=== PATIENT | female | born 1945 | race Caucasian/White ===

== ENCOUNTER 2016-06-13 09:31 | Outpatient (CLI) | payer OTHER ==
[~2016-06-13] VITALS: Ht 162.6 cm; Wt 53.5 kg
[~2016-06-13 09:31] MED LIST: ASPI-482 PO; CARB200T PO; CLOP75TA PO; METO25TA9 PO; SIMV20TA PO
[2016-06-13] MEDS ORDERED: BACITRACIN 50,000 UNIT in IV NORMAL SALINE 250ML 250 ML IRR ONE (09:45)
[2016-06-13 09:53] VITALS: BP 124/66
[2016-06-13 09:58] LABS: HEMATOCRIT 48.4 % (36.0-47.0); HEMOGLOBIN 16.3 g/dL (12.0-15.5); RED BLOOD COUNT 4.96 x10^6/uL (3.50-5.40); RED CELL DISTRIBUTION WIDTH 14.4 % (11.5-14.5); WHITE BLOOD COUNT 7.1 x10^3/uL (4.0-11.0)
[2016-06-13 10:14] LABS: CALCIUM 9.1 mg/dL (8.5-10.1); CREATININE 0.8 mg/dL (0.6-1.0); GFR 71.3; POTASSIUM 4.5 mmol/L (3.5-5.1)
[2016-06-13] MEDS ORDERED: MIDAZOLAM HCL/PF 5 MG/5 ML VIAL ONE (11:12)
[2016-06-13] MEDS ORDERED: FENTANYL PF 250 MCG/5 ML VIAL. ONE (11:12)
[2016-06-13] MEDS ORDERED: LIDOCAINE 2%/EPI 1:100,000 20 ML VIAL. ONE (11:12)
--- NOTE | 2016-06-13 11:24 | PDOC ---
MODERATE SEDATION ASSESSMENT RISKS/ALTERNATIVES Risks/Alternatives Risks and alternatives of this type of sedation and procedure discussed with: RISK/ALTERNATIVES: Patient H & P ON CHART H & P H & P on chart and reviewed for co-morbid conditions and appropriate labs. H&P ON CHART: Yes STATUS PREG STATUS ASSESSED: Yes MEDS/ALLERGIES REVIEWED Meds/Allergies Reviewed Medications and Allergies including time and route of recently administered narcotics and sedatives. MEDS/ALLERGIES REVIEWED: Yes ASA RATING ASA RATING: II AIRWAY ASSESSMENT Airway Assessment Airway patency, oral function limitations, presence of caps, crowns, dentures, partials, and ability to extend neck assessed. AIRWAY ASSESSMENT: Yes MALLAMPATI SCORE MALLAMPATI SCORE: II PRE-SEDATION ASSESSMENT PRE-SEDATION ASSESSMENT: Yes KATHY SPENCER MD Jun 13, 2016 11:24
[2016-06-13] MEDS ORDERED: LIDOCAINE 2%/EPI 1:100,000 20 ML VIAL. IJ ONE (11:45)
[2016-06-13 12:15] VITALS: BP 155/76
[2016-06-13 12:30] VITALS: BP 155/76
[2016-06-13 12:45] VITALS: BP 145/74
[2016-06-13 13:00] VITALS: BP 123/84
[2016-06-13 13:15] VITALS: BP 123/84
--- NOTE | 2016-06-13 18:49 | CARD ---
APPROVED REPORT HISTORY The Patient is a 70 year-old female with a history of bradycardia that has a permanent dual chamber p acer The patient's pacemaker was checked and it has reached end-of-life indicators. PROCEDURES Dual-chamber permanent pacemaker generator replacement INDICATIONS Pacemaker generator at end of life indicators for the battery IMPLANTED DEVICES [employer] dual-chamber pacemaker generator PROCEDURE After explaining the risks, benefits, and alternative options, informed consent was obtained from the patient. The patient was brought to the cardiac catheterization lab and the left chest and shoulder were prepp ed and draped in a sterile manner. The left subclavian region was infiltrated with 2% Lidocaine with Epinephrine, subcutaneous anesthesi a. A transverse incision was made in the left upper chest cavity. After the subcutaneous anesthesia was given the skin incision was done and with blunt dissection I wo rked my way down to the pocket. The pocket was entered and the generator was extracted from the pocket. The atrial lead was disconnected and checked we found that the thresholds were normal. We then connected the atrial lead to the generator at the atrial port and verified that there was nor mal function and a normal connection. The ventricular lead was then disconnected from the old generator and connected to the new generator and connections as well as functions were then checked and found to be normal. The pocket was then irrigated with antibiotic solution. The new pacer generator which was a [employer] generator connected to the [employer] leads was then place d in the pocket. The pocket was closed with 3 layers of running sutures. The skin edges were approximated with Dermabond. After the Dermabond was dry a dressing was applied to the area. The patient was then taken to the recovery room in satisfactory condition. COMPLICATIONS The patient tolerated the procedure well and there were no complications associated with the procedur e. CONCLUSION This patient received a [employer] dual-chamber pacemaker generator replacement and she tolerated the p rocedure well. We will be followed as an outpatient in one week in my office.
[2016-06-14] MEDS ORDERED: CEFAZOLIN SODIUM 1 GM in IV NORMAL SALINE 50ML 50 ML IV ONE (06:00)
== END 2016-06-13 13:30 | disposition home or self-care (01) ==
LOC: CCL 09:31
PROVIDERS: ATTEND Internal Medicine Cardiovascular Disease
DX: Z45.010 Encounter for checking and testing of cardiac pacemaker pulse generator [battery] (principal); E78.00 Pure hypercholesterolemia, unspecified; I10 Essential (primary) hypertension; J44.9 Chronic obstructive pulmonary disease, unspecified; I48.91 Unspecified atrial fibrillation; I73.9 Peripheral vascular disease, unspecified
CPT/HCPCS: 33228; 36415; 80048; 85027; 85610; C1785; J0690; J3490; J7050; 33213; J7030

== ENCOUNTER 2016-10-18 10:12 | Inpatient (IN) | payer OTHER, MEDICARE ==
[~2016-10-18] VITALS: Ht 162.6 cm; Wt 55.3 kg
[2016-10-18] VITALS (12 sets, daily range): BP systolic 108–174; BP diastolic 47–75
[2016-10-18] MEDS ORDERED: ONDANSETRON PF 4 MG/2 ML VIAL. IV ONE (10:30)
[2016-10-18] MEDS ORDERED: IPRATRPIUM/ALBUTEROL 0.5/2.5MG 3 ML NEBU. NEB ONE (10:30)
[2016-10-18] MEDS ORDERED: ASPIRIN 325 MG TABLET PO ONE (10:30)
[2016-10-18] MEDS ORDERED: ALBUTEROL SULFATE 2.5 MG/3 ML NEBU. INH ONE (10:30)
[2016-10-18] MEDS ORDERED: methylPREDNISolone SOD SUCC PF 125 MG/2 ML VIAL. IV ONE (10:30)
--- NOTE | 2016-10-18 10:52 | ACF ---
Admission Forms Criteria RESPIRATORY FAILURE [facility] Clinical Indications for Admission to Inpatient Care (Place 'X' for any and all applicable criteria): Hospital admission is needed for appropriate care of the patient because of acute respiratory failure or insufficiency as indicated by ANY ONE of the following(1)(2)(3)(4)(5)(6)(7)(8): [X]I. Mechanical ventilation needed (acute invasive or noninvasive) [ ]II. Severe ventilation deficit as indicated by ANY ONE of the following (9) [ ]a) Respiratory acidosis (pH less than 7.32 and partial pressure of carbon dioxide greater than 40 mm Hg (5.3 kPa)) [ ]b) Partial pressure of carbon dioxide greater than 44 mm Hg (5.9 kPa ) (new) [ ]c) Airflow measurements less than 25% of predicted (eg, peak expiratory flow rate less than 100 L/minute) [ ]d) Forced vital capacity less than 15 mL/kg of ideal body weight, or 50% decrease in vital capacity from baseline [ ]III. Noncardiac pulmonary edema not resolving with rapid emergency treatment (8) [ ]IV. Severe respiratory distress as indicated by ANY ONE of the following: [ ]a) Severe tachypnea (respiratory rate greater than 30, greater than 45 for 6-month-old, greater than 60 for ) [ ]b) Severe hypoxemia (partial pressure of oxygen less than 50 mm Hg ( 6.7 kPa) on greater than 50% oxygen or partial pressure of oxygen to FIO2 ratio less than 200) [ ]c) Mental status deterioration from respiratory disease [ ]V. Airway obstruction or inadequate protection [A](10)(11) The original [employer] content created by [employer] has been revised. The portions of the content which have been revised are identified through the use of italic text or in bold, and [employer] has neither reviewed nor approved the modified material. All other unmodified content is copyright [employer]. Please see references footnoted in the original [employer] edition 2016 Admission Criteria Met?: Yes MARITZA DOMINIQUE Oct 18, 2016 10:52
--- NOTE | 2016-10-18 11:15 | RAD ---
Portable chest, 10/18/2016: History: Shortness of breath Comparison is made to a study from 10/25/2013. A left-sided transvenous pacemaker remains in place with 2 leads extending into the heart. The heart is within normal limits in size. There are emphysematous changes, particularly in the right upper lobe with scattered parenchymal scars. There is mild unchanged basilar interstitial prominence. There is a calcified granuloma in the left base. No acute infiltrate is seen. There is no evidence of pneumothorax or pleural fluid. IMPRESSION: 1. Emphysema with moderate parenchymal scarring. 2. No acute cardiopulmonary abnormality is detected.
[2016-10-18 11:34] LABS: HCO3 ABG 23 mmol/L (21-28); PCO2 ABG 44 mmHg (35-46); PH ABG 7.34 (7.35-7.45); PO2 ABG 76 mmHg (65-108); SAT O2 ABG 94 % (92-99)
--- NOTE | 2016-10-18 11:45 | EKG ---
[facility] [address] [place] [address] Test Date: 2016-10-18 Test Time: 10:58:32 Pat Name: RASHAUN POZO Department: Room: Gender: F Hat Block Bench Hand: : 1945 Requested By: MAXIMINO PETERSEN Order Number: [id number] Reading MD: Measurements Intervals [place] Rate: 90 P: 90 VA: 148 QRS: 37 QRSD: 82 T: 75 QT: 346 QTc: 427 Interpretive Statements SINUS RHYTHM LEFT ATRIAL ABNORMALITY QRS(T) CONTOUR ABNORMALITY CONSIDER ANTEROSEPTAL MYOCARDIAL DAMAGE T ABNORMALITY IN HIGH LATERAL LEADS RI6.01 Unconfirmed report No previous ECG available for comparison
[2016-10-18 11:49] LABS: BASO # 0.1 x10^3/uL (0.0-0.2); BASO % 1 % (0-3); EOS % 1 % (0-3); HEMATOCRIT 45.2 % (36.0-47.0); HEMOGLOBIN 14.9 g/dL (12.0-15.5); LYMPH # 1.5 x10^3/uL (1.0-4.8); LYMPH % 20 % (24-48); MEAN CORPUSCULAR HEMOGLOBIN 33 pg (25-35); MEAN CORPUSCULAR HGB CONC 33 g/dL (31-37); MEAN CORPUSCULAR VOLUME 100 fL (79-100); MONO % 6 % (0-9); NEUT % 72 % (31-73); PLATELET COUNT 190 x10^3/uL (140-400); RED CELL DISTRIBUTION WIDTH 14.4 % (11.5-14.5); WHITE BLOOD COUNT 7.9 x10^3/uL (4.0-11.0)
[2016-10-18 12:01] LABS: INR 1.1 (0.8-1.1); PROTHROMBIN TIME PATIENT 13.2 SEC (11.7-14.0)
[2016-10-18 12:04] LABS: CALCIUM 9.1 mg/dL (8.5-10.1); CREATININE 0.8 mg/dL (0.6-1.0); GFR 71.3; POTASSIUM 4.5 mmol/L (3.5-5.1)
[2016-10-18 12:10] LABS: ALBUMIN 3.6 g/dL (3.4-5.0); ALBUMIN/GLOBULIN RATIO 0.9 (1.0-1.7); TOTAL BILIRUBIN 0.2 mg/dL (0.2-1.0); TOTAL PROTEIN 7.6 g/dL (6.4-8.2)
[2016-10-18] MEDS ORDERED: ACETAMINOPHEN 325 MG TABLET. PO PRN (13:15)
[2016-10-18] MEDS ORDERED: MORPHINE SULFATE 2 MG/ML DISP.SYRIN. IV PRN (13:15)
[2016-10-18] MEDS ORDERED: ONDANSETRON PF 4 MG/2 ML VIAL. IV PRN (13:15)
--- NOTE | 2016-10-18 13:58 | PHYS DOC ---
Past Medical History Past Medical History: COPD, PR Past Surgical History: Pacemaker, Tonsillectomy, Other Additional Past Surgical Histo: CARTIOD Additional Information: 2 TO 3 PPD Alcohol Use: Occasionally Drug Use: None Adult General Chief Complaint Chief Complaint: SHORTNESS OF BREATH HPI HPI Patient is a 70 year old female who presents with respiratory distress. The patient reports 2 weeks of progressive dyspnea at rest significantly worse today. Reports wheezing and cough productive of pink/red sputum. Denies fevers or chills, chest pain, lower extremity pain or swelling. She has history of COPD not dependent on home oxygen, CAD status post cardiac stenting, status post carotid endarterectomy. Current every day smoker. PCP is Dr. Hylton. EMS placed her on CPAP due to O2 sats in the 80s at home with distress. Review of Systems Review of Systems Constitutional: Denies fever or chills Eyes: Denies change in visual acuity HENT: Denies nasal congestion or sore throat Respiratory: Reports cough and shortness of breath Cardiovascular: Denies chest pain or edema GI: Denies abdominal pain, nausea, vomiting, or diarrhea Musculoskeletal: Denies back pain or joint pain Integument: Denies rash or skin lesions Neurologic: Denies headache, focal weakness or sensory changes Allergies Allergies Allergies Coded Allergies Type Severity Reaction Last Updated Verified oxycodone Allergy Intermediate 10/25/13 No Physical Exam Physical Exam Constitutional: Well developed, well nourished, mild respiratory distress, non- toxic appearance. HENT: Normocephalic, atraumatic, bilateral external ears normal, oropharynx moist, nose normal. Eyes: conjunctiva normal, no discharge. Neck: supple, no stridor. Cardiovascular: Tachycardic, regular, no murmurs, no edema. Lungs & Thorax: Tight throughout, coarse with expiratory wheezing, no respiratory distress. Abdomen: soft, nontender, nondistended. Skin: Warm, dry, no erythema, no rash. Back: No tenderness. Extremities: No tenderness, no edema. No calf tenderness or swelling Neurologic: Alert and oriented X 3, no focal deficits noted. Psychologic: Affect normal, judgement normal, mood normal. Current Patient Data Vital Signs Vital Signs Date Time Temp Pulse Resp B/P (MAP) Pulse Ox O2 Delivery O2 Flow Rate FiO2 10/18/16 10:12 97.8 99 26 161/81 (107) 90 BiPAP/CPAP 97.8 EKG EKG Interpreted by me: Normal sinus rhythm rate 90, no acute ST or T wave changes, normal intervals, no ectopy. [] Radiology/Procedures Radiology/Procedures PROCEDURE: CHEST AP ONLY Portable chest, 10/18/2016: History: Shortness of breath Comparison is made to a study from 10/25/2013. A left-sided transvenous pacemaker remains in place with 2 leads extending into the heart. The heart is within normal limits in size. There are emphysematous changes, particularly in the right upper lobe with scattered parenchymal scars. There is mild unchanged basilar interstitial prominence. There is a calcified granuloma in the left base. No acute infiltrate is seen. There is no evidence of pneumothorax or pleural fluid. IMPRESSION: 1. Emphysema with moderate parenchymal scarring. 2. No acute cardiopulmonary abnormality is detected. DICTATED and SIGNED BY: MIKAL TOVAR MD DATE: 10/18/16 1110[] Course & Med Decision Making Course & Med Decision Making Pertinent Labs and Imaging studies reviewed. (See chart for details) The patient presents with acute respiratory failure on CPAP. Transferred to BiPAP here. Gave in-line breathing treatments and Solu-Medrol as well as aspirin. Obtained labs, EKG, chest x-ray. Chest x-ray shows no infiltrate. Labs are pending at time of admission as they had to be redrawn. I discussed with Dr. Auguste who agrees to consult, discussed with Dr. Hylton who agrees to admit to inpatient status. The patient is admitted in stable condition. Critical care time: 35 minutes [] Dragon Disclaimer Dragon Disclaimer This electronic medical record was generated, in whole or in part, using a voice recognition dictation system. Departure Departure Impression: Primary Impression: Acute respiratory failure Additional Impressions: COPD with acute exacerbation Hypoxia Tobacco abuse Disposition: ADMITTED INPATIENT Admitting Physician: Norberto Hylton Condition: STABLE Referrals: NORBERTO HYLTON MD (PCP) Problem Qualifiers MAXIMINO PETERSEN MD Oct 18, 2016 13:58
[2016-10-18] MEDS: IPRATRPIUM/ALBUTEROL 0.5/2.5MG 3 ML NEBU. NEB SCH ×2 (14:19→19:41)
[2016-10-18] MEDS ORDERED: carBAMazepine 200 MG TABLET PO SCH ×2 (15:15→21:00)
[2016-10-18] MEDS: CARBAMAZEPINE 100 MG PO SCH ×2 (16:15→20:53)
[2016-10-18] MEDS ORDERED: diphenhydrAMINE HCL 25 MG CAPSULE PO PRN (19:30)
--- NOTE | 2016-10-18 19:31 | PDOC ---
PULMONARY PROGRESS NOTES Vitals Vital Signs Date Time Temp Pulse Resp B/P (MAP) Pulse Ox O2 Delivery O2 Flow Rate FiO2 10/18/16 16:00 97.8 89 20 127/75 (92) 94 Nasal Cannula 3.0 97.8 Labs Laboratory Tests Test 10/18/16 11:40 White Blood Count 7.9 x10^3/uL (4.0-11.0) Red Blood Count 4.50 x10^6/uL (3.50-5.40) Hemoglobin 14.9 g/dL (12.0-15.5) Hematocrit 45.2 % (36.0-47.0) Mean Corpuscular Volume 100 fL (79-100) Mean Corpuscular Hemoglobin 33 pg (25-35) Mean Corpuscular Hemoglobin Concent 33 g/dL (31-37) Red Cell Distribution Width 14.4 % (11.5-14.5) Platelet Count 190 x10^3/uL (140-400) Neutrophils (%) (Auto) 72 % (31-73) Lymphocytes (%) (Auto) 20 % (24-48) Monocytes (%) (Auto) 6 % (0-9) Eosinophils (%) (Auto) 1 % (0-3) Basophils (%) (Auto) 1 % (0-3) Neutrophils # (Auto) 5.7 x10^3uL (1.8-7.7) Lymphocytes # (Auto) 1.5 x10^3/uL (1.0-4.8) Monocytes # (Auto) 0.5 x10^3/uL (0.0-1.1) Eosinophils # (Auto) 0.1 x10^3/uL (0.0-0.7) Basophils # (Auto) 0.1 x10^3/uL (0.0-0.2) Prothrombin Time 13.2 SEC (11.7-14.0) Prothromb Time International Ratio 1.1 (0.8-1.1) Activated Partial Thromboplast Time 27 SEC (24-38) O2 Saturation 94 % (92-99) Arterial Blood pH 7.34 (7.35-7.45) Arterial Blood pCO2 at Patient Temp 44 mmHg (35-46) Arterial Blood pO2 at Patient Temp 76 mmHg (65-108) Arterial Blood HCO3 23 mmol/L (21-28) Arterial Blood Base Excess -3 mmol/L (-3-3) FiO2 40.0 Sodium Level 141 mmol/L (136-145) Potassium Level 4.5 mmol/L (3.5-5.1) Chloride Level 104 mmol/L (98-107) Carbon Dioxide Level 29 mmol/L (21-32) Anion Gap 8 (6-14) Blood Urea Nitrogen 24 mg/dL (7-20) Creatinine 0.8 mg/dL (0.6-1.0) Estimated GFR (Cockcroft-Gault) 71.3 BUN/Creatinine Ratio 30 (6-20) Glucose Level 133 mg/dL (70-99) Calcium Level 9.1 mg/dL (8.5-10.1) Total Bilirubin 0.2 mg/dL (0.2-1.0) Aspartate Amino Transf (AST/SGOT) 22 U/L (15-37) Alanine Aminotransferase (ALT/SGPT) 24 U/L (14-59) Alkaline Phosphatase 103 U/L (46-116) Troponin I Quantitative < 0.017 ng/mL (0.000-0.055) EH-Gtg-Y-Type Natriuretic Peptide 432 pg/mL (0-124) Total Protein 7.6 g/dL (6.4-8.2) Albumin 3.6 g/dL (3.4-5.0) Albumin/Globulin Ratio 0.9 (1.0-1.7) Laboratory Tests Test 10/18/16 11:40 White Blood Count 7.9 x10^3/uL (4.0-11.0) Red Blood Count 4.50 x10^6/uL (3.50-5.40) Hemoglobin 14.9 g/dL (12.0-15.5) Hematocrit 45.2 % (36.0-47.0) Mean Corpuscular Volume 100 fL (79-100) Mean Corpuscular Hemoglobin 33 pg (25-35) Mean Corpuscular Hemoglobin Concent 33 g/dL (31-37) Red Cell Distribution Width 14.4 % (11.5-14.5) Platelet Count 190 x10^3/uL (140-400) Neutrophils (%) (Auto) 72 % (31-73) Lymphocytes (%) (Auto) 20 % (24-48) Monocytes (%) (Auto) 6 % (0-9) Eosinophils (%) (Auto) 1 % (0-3) Basophils (%) (Auto) 1 % (0-3) Neutrophils # (Auto) 5.7 x10^3uL (1.8-7.7) Lymphocytes # (Auto) 1.5 x10^3/uL (1.0-4.8) Monocytes # (Auto) 0.5 x10^3/uL (0.0-1.1) Eosinophils # (Auto) 0.1 x10^3/uL (0.0-0.7) Basophils # (Auto) 0.1 x10^3/uL (0.0-0.2) Prothrombin Time 13.2 SEC (11.7-14.0) Prothromb Time International Ratio 1.1 (0.8-1.1) Activated Partial Thromboplast Time 27 SEC (24-38) O2 Saturation 94 % (92-99) Arterial Blood pH 7.34 (7.35-7.45) Arterial Blood pCO2 at Patient Temp 44 mmHg (35-46) Arterial Blood pO2 at Patient Temp 76 mmHg (65-108) Arterial Blood HCO3 23 mmol/L (21-28) Arterial Blood Base Excess -3 mmol/L (-3-3) FiO2 40.0 Sodium Level 141 mmol/L (136-145) Potassium Level 4.5 mmol/L (3.5-5.1) Chloride Level 104 mmol/L (98-107) Carbon Dioxide Level 29 mmol/L (21-32) Anion Gap 8 (6-14) Blood Urea Nitrogen 24 mg/dL (7-20) Creatinine 0.8 mg/dL (0.6-1.0) Estimated GFR (Cockcroft-Gault) 71.3 BUN/Creatinine Ratio 30 (6-20) Glucose Level 133 mg/dL (70-99) Calcium Level 9.1 mg/dL (8.5-10.1) Total Bilirubin 0.2 mg/dL (0.2-1.0) Aspartate Amino Transf (AST/SGOT) 22 U/L (15-37) Alanine Aminotransferase (ALT/SGPT) 24 U/L (14-59) Alkaline Phosphatase 103 U/L (46-116) Troponin I Quantitative < 0.017 ng/mL (0.000-0.055) TW-Miz-Q-Type Natriuretic Peptide 432 pg/mL (0-124) Total Protein 7.6 g/dL (6.4-8.2) Albumin 3.6 g/dL (3.4-5.0) Albumin/Globulin Ratio 0.9 (1.0-1.7) Medications Active Scripts Medications Dose Route/Sig Max Daily Dose Days Date Category Clopidogrel (Clopidogrel Bisulfate) 75 Mg Tablet 75 Mg PO DAILY 10/25/13 Reported Metoprolol Succinate ( Xl ) (Metoprolol Succinate) 25 Mg Tab.er.24h 12.5 Mg PO DAILY 10/25/13 Reported Zocor (Simvastatin) 20 Mg Tablet 20 Mg PO HS 10/25/13 Reported Tegretol (Carbamazepine) 200 Mg Tablet 100 Mg PO TID 10/25/13 Reported Aspir 81 (Aspirin) 81 Mg Tablet.dr 81 Mg PO DAILY 10/25/13 Reported Impression . FULL CONSULT DICTATED THANKS ACUTE RESP FAILURE HEMOPTYSIS AECOPD SEE ORDERS JARON GRULLON MD Oct 18, 2016 19:31
[2016-10-18] MEDS: BENZONATATE 100 MG CAPSULE. PO SCH (20:52)
[2016-10-18] MEDS: methylPREDNISolone SOD SUCC PF 125 MG/2 ML VIAL. IV SCH (20:52)
[2016-10-18] MEDS ORDERED: SIMVASTATIN 20 MG TABLET PO SCH (21:00)
[2016-10-19] VITALS (10 sets, daily range): BP systolic 133–162; BP diastolic 58–83
[2016-10-19 05:40] LABS: BASO % 0 % (0-3); EOS % 0 % (0-3); HEMATOCRIT 40.3 % (36.0-47.0); HEMOGLOBIN 13.6 g/dL (12.0-15.5); LYMPH # 0.8 x10^3/uL (1.0-4.8); LYMPH % 8 % (24-48); MEAN CORPUSCULAR HEMOGLOBIN 33 pg (25-35); MEAN CORPUSCULAR HGB CONC 34 g/dL (31-37); MEAN CORPUSCULAR VOLUME 98 fL (79-100); MONO % 3 % (0-9); NEUT % 89 % (31-73); PLATELET COUNT 177 x10^3/uL (140-400); RED CELL DISTRIBUTION WIDTH 14.2 % (11.5-14.5); WHITE BLOOD COUNT 10.1 x10^3/uL (4.0-11.0)
[2016-10-19 06:01] LABS: CALCIUM 9.1 mg/dL (8.5-10.1); CREATININE 0.8 mg/dL (0.6-1.0); GFR 71.3; POTASSIUM 4.8 mmol/L (3.5-5.1)
--- NOTE | 2016-10-19 07:07 | CONS ---
DATE OF CONSULTATION: 10/18/2016 ATTENDING PHYSICIAN: Dr. Ashwin Hylton. REASON FOR CONSULTATION: The patient is seen in pulmonary consultation at the request of Dr. Hylton for acute respiratory failure, hemoptysis. HISTORY OF PRESENT ILLNESS: The patient is a 70-year-old that smokes on a daily basis approximately 2-3 packs per day. She presented with increasing shortness of breath over the last 2-3 days. Apparently, her air condition was nonfunctional for a short period of time; her sprayed for some bugs. She became acutely short of breath, presented to the Emergency Room with some respiratory distress, initially placed on BiPAP and transferred to the Intensive Care Unit. Her arterial blood gas revealed a pH of 7.34, PaCO2 of 44, pO2 of 76 on 40% FIO2. White count was normal. The hemoglobin and hematocrit were normal. The patient had a chest x-ray, which I personally reviewed. There is evidence of emphysema with some scarring. Over the last 24 hours, she has had acute onset of hemoptysis, bright red blood; in fact, while I was in the room, she had a container that contained some blood. There was not much mucus. The patient states that this occurred approximately a year ago, at one point when she had an acute episode of bronchitis, the hemoptysis was treated with some prednisone. She improved and never sought any additional treatment or followup or evaluation. PAST MEDICAL HISTORY: Coronary artery disease with previous myocardial infarction. She is status post pacemaker implantation. She has had tonsillectomy. PAST SURGICAL HISTORY: As above. ALLERGIES: TO OXYCODONE. HOME MEDICATIONS: List was reviewed. She is not currently on oxygen supplementation at home; apparently, she did not qualify. REVIEW OF SYSTEMS: As indicated above, otherwise a 10-point system was reviewed and negative. CURRENT MEDICATIONS: List was likewise reviewed. FAMILY HISTORY: No family history of lung cancer. SOCIAL HISTORY: She continues to smoke 2-3 packs of cigarettes, has no interest in quitting. Occasional use of alcohol. No illicit drugs. PHYSICAL EXAMINATION: VITAL SIGNS: The patient was off BiPAP in the Intensive Care Unit. Since her admission, her respiratory status is greatly improved. HEENT: Eyes, the sclerae were nonicteric. NECK: Jugular venous distention was not elevated. No lymphadenopathy. CHEST: Full expansion. LUNGS: Poor airway flow with no wheezes. CARDIOVASCULAR: Regular rate and rhythm with S1, S2, no S3. ABDOMEN: Soft, nontender, nondistended. EXTREMITIES: No clubbing, cyanosis or edema. NEUROLOGIC: The patient was awake, alert, following commands. A detailed neuro exam was not performed. LABORATORY DATA: Reviewed. Arterial blood gas as indicated above. White count was normal. IMPRESSION: 1. Acute respiratory failure secondary to acute exacerbation of chronic obstructive pulmonary disease. 2. Acute hemoptysis secondary to acute bronchitis. 3. Abnormal x-ray revealing evidence of emphysema and some scarring. 4. Tobacco dependence. 5. Coronary artery disease with previous myocardial infarction. 6. Status post pacemaker implantation. PLAN: 1. We will proceed with CT chest. 2. Monitor for further hemoptysis. 3. Possible bronchoscopy in the future. 4. Nebulized treatments. 5. Steroids. 6. No need for antibiotics. 7. The patient instructed on the importance of discontinuing her tobacco use. Once again, she is not interested in quitting at this time. 8. Of note is the patient is both on aspirin and Plavix. If her hemoptysis continues, would recommend possibly holding the aspirin. I do appreciate the privilege in sharing this patient's care. JARON GRULLON MD DR: ERICA/sumi JOB#: [id number] / [id number]
[2016-10-19] MEDS ORDERED: ASPIRIN ENTERIC COATED 81 MG TABLET.DR. PO SCH (08:00)
[2016-10-19] MEDS ORDERED: CLOPIDOGREL BISULFATE 75 MG TABLET PO SCH (08:00)
--- NOTE | 2016-10-19 08:07 | RAD ---
CT of the chest without contrast, 10/18/2016: History: Hemoptysis, shortness of breath Noncontrast scans were obtained as requested. There are extensive emphysematous changes in the lungs. There are moderate scattered predominantly linear opacities in both lungs most compatible with scars. There is a calcified granuloma in the left base. A small irregular, partially solid peripheral parenchymal opacity is seen inferolaterally in the right upper lobe abutting the minor fissure. It measures approximately 9 x 6 mm as best seen on coronal image 26 of series #4. There are mild streaky and groundglass opacities in the right lung base. This is a nonspecific appearance which may be due to additional scarring although active inflammation cannot be excluded. Pleural thickening medially in the right middle lobe is probably due to scarring. No pleural fluid is evident. Transvenous pacing leads extend into the heart. There is moderate calcific plaquing of the thoracic aorta without evidence of aneurysm. Moderate coronary artery calcifications are present. The heart is not enlarged. No mediastinal adenopathy is seen. There are left hilar calcifications due to old granulomatous disease. IMPRESSION: 1. Severe pulmonary emphysema. 2. Moderate bilateral pleural-parenchymal opacities probably due to scarring. A component of active inflammation in the right lung base cannot be excluded. 3. Small peripheral right upper lobe opacity which is probably a scar, although a neoplastic etiology cannot be excluded. CT follow-up beginning in 3-6 months is suggested, per Fleischner Society 2017 guidelines. 4. Moderate calcific plaquing of the aorta and coronary arteries. PQRS Compliance Statement: One or more of the following individualized dose reduction techniques were utilized for this examination: 1. Automated exposure control 2. Adjustment of the mA and/or kV according to patient size 3. Use of iterative reconstruction technique
--- NOTE | 2016-10-19 08:42 | PDOC ---
PULMONARY PROGRESS NOTES Subjective PT WISHES OT GO HOME FEELS BETTER LESS COUGH NO FURTHER HEMOPTYSIS Vitals Vital Signs Date Time Temp Pulse Resp B/P (MAP) Pulse Ox O2 Delivery O2 Flow Rate FiO2 10/19/16 07:00 82 17 153/61 (91) 93 Nasal Cannula 4.0 10/19/16 04:00 97.6 97.6 ROS: No Nausea, No Chest Pain, No Abdominal Pain, No Increase Cough Lungs: Clear Cardiovascular: S1, S2 Abdomen: Soft Neuro Exam: Alert Extremities: No Edema Skin: Warm Labs Laboratory Tests Test 10/18/16 11:40 10/18/16 13:00 10/19/16 04:30 10/19/16 05:00 White Blood Count 7.9 x10^3/uL (4.0-11.0) 10.1 x10^3/uL (4.0-11.0) Red Blood Count 4.50 x10^6/uL (3.50-5.40) 4.10 x10^6/uL (3.50-5.40) Hemoglobin 14.9 g/dL (12.0-15.5) 13.6 g/dL (12.0-15.5) Hematocrit 45.2 % (36.0-47.0) 40.3 % (36.0-47.0) Mean Corpuscular Volume 100 fL (79-100) 98 fL (79-100) Mean Corpuscular Hemoglobin 33 pg (25-35) 33 pg (25-35) Mean Corpuscular Hemoglobin Concent 33 g/dL (31-37) 34 g/dL (31-37) Red Cell Distribution Width 14.4 % (11.5-14.5) 14.2 % (11.5-14.5) Platelet Count 190 x10^3/uL (140-400) 177 x10^3/uL (140-400) Neutrophils (%) (Auto) 72 % (31-73) 89 % (31-73) Lymphocytes (%) (Auto) 20 % (24-48) 8 % (24-48) Monocytes (%) (Auto) 6 % (0-9) 3 % (0-9) Eosinophils (%) (Auto) 1 % (0-3) 0 % (0-3) Basophils (%) (Auto) 1 % (0-3) 0 % (0-3) Neutrophils # (Auto) 5.7 x10^3uL (1.8-7.7) 9.0 x10^3uL (1.8-7.7) Lymphocytes # (Auto) 1.5 x10^3/uL (1.0-4.8) 0.8 x10^3/uL (1.0-4.8) Monocytes # (Auto) 0.5 x10^3/uL (0.0-1.1) 0.3 x10^3/uL (0.0-1.1) Eosinophils # (Auto) 0.1 x10^3/uL (0.0-0.7) 0.0 x10^3/uL (0.0-0.7) Basophils # (Auto) 0.1 x10^3/uL (0.0-0.2) 0.0 x10^3/uL (0.0-0.2) Prothrombin Time 13.2 SEC (11.7-14.0) Prothromb Time International Ratio 1.1 (0.8-1.1) Activated Partial Thromboplast Time 27 SEC (24-38) O2 Saturation 94 % (92-99) Arterial Blood pH 7.34 (7.35-7.45) Arterial Blood pCO2 at Patient Temp 44 mmHg (35-46) Arterial Blood pO2 at Patient Temp 76 mmHg (65-108) Arterial Blood HCO3 23 mmol/L (21-28) Arterial Blood Base Excess -3 mmol/L (-3-3) FiO2 40.0 Sodium Level 141 mmol/L (136-145) 141 mmol/L (136-145) Potassium Level 4.5 mmol/L (3.5-5.1) 4.8 mmol/L (3.5-5.1) Chloride Level 104 mmol/L (98-107) 106 mmol/L (98-107) Carbon Dioxide Level 29 mmol/L (21-32) 29 mmol/L (21-32) Anion Gap 8 (6-14) 6 (6-14) Blood Urea Nitrogen 24 mg/dL (7-20) 21 mg/dL (7-20) Creatinine 0.8 mg/dL (0.6-1.0) 0.8 mg/dL (0.6-1.0) Estimated GFR (Cockcroft-Gault) 71.3 71.3 BUN/Creatinine Ratio 30 (6-20) Glucose Level 133 mg/dL (70-99) 133 mg/dL (70-99) Calcium Level 9.1 mg/dL (8.5-10.1) 9.1 mg/dL (8.5-10.1) Total Bilirubin 0.2 mg/dL (0.2-1.0) Aspartate Amino Transf (AST/SGOT) 22 U/L (15-37) Alanine Aminotransferase (ALT/SGPT) 24 U/L (14-59) Alkaline Phosphatase 103 U/L (46-116) Troponin I Quantitative < 0.017 ng/mL (0.000-0.055) ZS-Nzi-E-Type Natriuretic Peptide 432 pg/mL (0-124) Total Protein 7.6 g/dL (6.4-8.2) Albumin 3.6 g/dL (3.4-5.0) Albumin/Globulin Ratio 0.9 (1.0-1.7) Nasal Screen MRSA (PCR) Negative (Negative) Laboratory Tests Test 10/18/16 11:40 10/18/16 13:00 10/19/16 04:30 10/19/16 05:00 White Blood Count 7.9 x10^3/uL (4.0-11.0) 10.1 x10^3/uL (4.0-11.0) Red Blood Count 4.50 x10^6/uL (3.50-5.40) 4.10 x10^6/uL (3.50-5.40) Hemoglobin 14.9 g/dL (12.0-15.5) 13.6 g/dL (12.0-15.5) Hematocrit 45.2 % (36.0-47.0) 40.3 % (36.0-47.0) Mean Corpuscular Volume 100 fL (79-100) 98 fL (79-100) Mean Corpuscular Hemoglobin 33 pg (25-35) 33 pg (25-35) Mean Corpuscular Hemoglobin Concent 33 g/dL (31-37) 34 g/dL (31-37) Red Cell Distribution Width 14.4 % (11.5-14.5) 14.2 % (11.5-14.5) Platelet Count 190 x10^3/uL (140-400) 177 x10^3/uL (140-400) Neutrophils (%) (Auto) 72 % (31-73) 89 % (31-73) Lymphocytes (%) (Auto) 20 % (24-48) 8 % (24-48) Monocytes (%) (Auto) 6 % (0-9) 3 % (0-9) Eosinophils (%) (Auto) 1 % (0-3) 0 % (0-3) Basophils (%) (Auto) 1 % (0-3) 0 % (0-3) Neutrophils # (Auto) 5.7 x10^3uL (1.8-7.7) 9.0 x10^3uL (1.8-7.7) Lymphocytes # (Auto) 1.5 x10^3/uL (1.0-4.8) 0.8 x10^3/uL (1.0-4.8) Monocytes # (Auto) 0.5 x10^3/uL (0.0-1.1) 0.3 x10^3/uL (0.0-1.1) Eosinophils # (Auto) 0.1 x10^3/uL (0.0-0.7) 0.0 x10^3/uL (0.0-0.7) Basophils # (Auto) 0.1 x10^3/uL (0.0-0.2) 0.0 x10^3/uL (0.0-0.2) Prothrombin Time 13.2 SEC (11.7-14.0) Prothromb Time International Ratio 1.1 (0.8-1.1) Activated Partial Thromboplast Time 27 SEC (24-38) O2 Saturation 94 % (92-99) Arterial Blood pH 7.34 (7.35-7.45) Arterial Blood pCO2 at Patient Temp 44 mmHg (35-46) Arterial Blood pO2 at Patient Temp 76 mmHg (65-108) Arterial Blood HCO3 23 mmol/L (21-28) Arterial Blood Base Excess -3 mmol/L (-3-3) FiO2 40.0 Sodium Level 141 mmol/L (136-145) 141 mmol/L (136-145) Potassium Level 4.5 mmol/L (3.5-5.1) 4.8 mmol/L (3.5-5.1) Chloride Level 104 mmol/L (98-107) 106 mmol/L (98-107) Carbon Dioxide Level 29 mmol/L (21-32) 29 mmol/L (21-32) Anion Gap 8 (6-14) 6 (6-14) Blood Urea Nitrogen 24 mg/dL (7-20) 21 mg/dL (7-20) Creatinine 0.8 mg/dL (0.6-1.0) 0.8 mg/dL (0.6-1.0) Estimated GFR (Cockcroft-Gault) 71.3 71.3 BUN/Creatinine Ratio 30 (6-20) Glucose Level 133 mg/dL (70-99) 133 mg/dL (70-99) Calcium Level 9.1 mg/dL (8.5-10.1) 9.1 mg/dL (8.5-10.1) Total Bilirubin 0.2 mg/dL (0.2-1.0) Aspartate Amino Transf (AST/SGOT) 22 U/L (15-37) Alanine Aminotransferase (ALT/SGPT) 24 U/L (14-59) Alkaline Phosphatase 103 U/L (46-116) Troponin I Quantitative < 0.017 ng/mL (0.000-0.055) TJ-Oua-K-Type Natriuretic Peptide 432 pg/mL (0-124) Total Protein 7.6 g/dL (6.4-8.2) Albumin 3.6 g/dL (3.4-5.0) Albumin/Globulin Ratio 0.9 (1.0-1.7) Nasal Screen MRSA (PCR) Negative (Negative) Medications Active Scripts Medications Dose Route/Sig Max Daily Dose Days Date Category Clopidogrel (Clopidogrel Bisulfate) 75 Mg Tablet 75 Mg PO DAILY 10/25/13 Reported Metoprolol Succinate ( Xl ) (Metoprolol Succinate) 25 Mg Tab.er.24h 12.5 Mg PO DAILY 10/25/13 Reported Zocor (Simvastatin) 20 Mg Tablet 20 Mg PO HS 10/25/13 Reported Tegretol (Carbamazepine) 200 Mg Tablet 100 Mg PO TID 10/25/13 Reported Aspir 81 (Aspirin) 81 Mg Tablet.dr 81 Mg PO DAILY 10/25/13 Reported Impression . 1. Acute respiratory failure secondary to acute exacerbation of chronic obstructive pulmonary disease. 2. Acute hemoptysis secondary to acute bronchitis. 3. Abnormal x-ray revealing evidence of emphysema and some scarring. 4. Tobacco dependence. 5. Coronary artery disease with previous myocardial infarction. 6. Status post pacemaker implantation. Plan . PT WISHES TO BE D/C REVIEWED THE CT NO OBVIOUS MASS NEEDS FOLLOW UP CT IN 3 MONTHS PT INSTRUCTED TO CALL ME JIN IF HEMOPTYSIS RECURS , AT BEDSIDE STEROIDS TAPER RX WRITTEN PT INFORMED THAT SHE NEEDS TO D/C SMOKING A COPY OF CT REPORT WAS PROVIDED TO PT 6 MIN WALK SHE REQUIRES O2 WITH EXERTION JARON GRULLON MD Oct 19, 2016 08:42
[2016-10-19] MEDS: IPRATRPIUM/ALBUTEROL 0.5/2.5MG 3 ML NEBU. NEB SCH ×3 (08:43→14:48)
[2016-10-19] MEDS: methylPREDNISolone SOD SUCC PF 125 MG/2 ML VIAL. IV SCH (08:49)
[2016-10-19] MEDS: CARBAMAZEPINE 100 MG PO SCH ×2 (08:49→14:49)
[2016-10-19] MEDS: BENZONATATE 100 MG CAPSULE. PO SCH ×2 (08:49→14:48)
--- NOTE | 2016-10-19 08:49 | PDOC ---
GENERAL General: vss and afebrile. O2 at 4L/NC. awake and alert and feels she is at her baseline. some hemoptysis and ct chest reviewed and no obvious source. chest with decreased breath sounds but clear. heart regular. may go to floor. dc plans per pulmonary as patient pushing for dc today. Problems: VITAL SIGNS Vital Signs: Vital Signs Date Time Temp Pulse Resp B/P (MAP) Pulse Ox O2 Delivery O2 Flow Rate FiO2 10/19/16 08:44 91 Nasal Cannula 4.0 10/19/16 07:00 82 17 153/61 (91) 10/19/16 04:00 97.6 97.6 I & O I & O Intake and Output 10/19/16 07:00 Intake Total 820 ml Output Total 1600 ml Balance -780 ml Intake Oral 820 ml Output Urine Total 1600 ml ALLERGIES Allergies: Allergies Coded Allergies Type Severity Reaction Last Updated Verified oxycodone Allergy Intermediate 10/25/13 No MEDS Medications: Current Medications Medications (Trade) Dose Ordered Sig/Moncho Start Time Stop Time Status Last Admin Dose Admin Acetaminophen (Tylenol) 650 mg PRN Q4HRS PRN 10/18/16 13:15 10/19/16 13:14 Albuterol Sulfate (Ventolin Neb Soln) 5 mg 1X ONCE 10/18/16 10:30 10/18/16 10:31 DC 10/18/16 10:36 5 MG Albuterol/ Ipratropium (Duoneb) 3 ml RTQID 10/18/16 16:00 10/19/16 15:59 10/19/16 08:43 3 ML Aspirin (Shaila Aspirin) 325 mg 1X ONCE 10/18/16 10:30 10/18/16 10:31 DC 10/18/16 10:36 325 MG Aspirin (Ecotrin) 81 mg DAILYWBKFT 10/19/16 08:00 10/19/16 08:00 DC Benzonatate (Tessalon Perle) 100 mg [id number] 10/18/16 21:00 10/18/16 20:52 100 MG Carbamazepine (TEGretol) 200 mg TID 10/18/16 21:00 UNV Clopidogrel Bisulfate (Plavix) 75 mg DAILYWBKFT 10/19/16 08:00 Diphenhydramine HCl (Benadryl) 25 mg PRN QHS PRN 10/18/16 19:30 Lorazepam (Ativan) 1 mg 1X ONCE 10/18/16 10:45 10/18/16 10:46 DC 10/18/16 11:06 0.5 MG Methylprednisolone Sodium Succinate (SOLU-Medrol 125MG VIAL) 125 mg BID 10/18/16 21:00 10/18/16 20:52 125 MG Metoprolol Succinate (Toprol Xl) 12.5 mg DAILY 10/19/16 09:00 Morphine Sulfate 2 mg PRN Q2HR PRN 10/18/16 13:15 10/19/16 13:14 Non-Formulary Medication 1 ea TID 10/18/16 16:15 10/18/16 20:53 1 EA Ondansetron HCl (Zofran) 4 mg PRN Q8HRS PRN 10/18/16 13:15 10/19/16 13:14 Simvastatin (Zocor) 20 mg HS 10/18/16 21:00 10/18/16 20:52 20 MG LAB Lab: Laboratory Tests Test 10/18/16 11:40 10/18/16 13:00 10/19/16 04:30 10/19/16 05:00 White Blood Count 7.9 x10^3/uL (4.0-11.0) 10.1 x10^3/uL (4.0-11.0) Red Blood Count 4.50 x10^6/uL (3.50-5.40) 4.10 x10^6/uL (3.50-5.40) Hemoglobin 14.9 g/dL (12.0-15.5) 13.6 g/dL (12.0-15.5) Hematocrit 45.2 % (36.0-47.0) 40.3 % (36.0-47.0) Mean Corpuscular Volume 100 fL (79-100) 98 fL (79-100) Mean Corpuscular Hemoglobin 33 pg (25-35) 33 pg (25-35) Mean Corpuscular Hemoglobin Concent 33 g/dL (31-37) 34 g/dL (31-37) Red Cell Distribution Width 14.4 % (11.5-14.5) 14.2 % (11.5-14.5) Platelet Count 190 x10^3/uL (140-400) 177 x10^3/uL (140-400) Neutrophils (%) (Auto) 72 % (31-73) 89 % (31-73) Lymphocytes (%) (Auto) 20 % (24-48) 8 % (24-48) Monocytes (%) (Auto) 6 % (0-9) 3 % (0-9) Eosinophils (%) (Auto) 1 % (0-3) 0 % (0-3) Basophils (%) (Auto) 1 % (0-3) 0 % (0-3) Neutrophils # (Auto) 5.7 x10^3uL (1.8-7.7) 9.0 x10^3uL (1.8-7.7) Lymphocytes # (Auto) 1.5 x10^3/uL (1.0-4.8) 0.8 x10^3/uL (1.0-4.8) Monocytes # (Auto) 0.5 x10^3/uL (0.0-1.1) 0.3 x10^3/uL (0.0-1.1) Eosinophils # (Auto) 0.1 x10^3/uL (0.0-0.7) 0.0 x10^3/uL (0.0-0.7) Basophils # (Auto) 0.1 x10^3/uL (0.0-0.2) 0.0 x10^3/uL (0.0-0.2) Prothrombin Time 13.2 SEC (11.7-14.0) Prothromb Time International Ratio 1.1 (0.8-1.1) Activated Partial Thromboplast Time 27 SEC (24-38) O2 Saturation 94 % (92-99) Arterial Blood pH 7.34 (7.35-7.45) Arterial Blood pCO2 at Patient Temp 44 mmHg (35-46) Arterial Blood pO2 at Patient Temp 76 mmHg (65-108) Arterial Blood HCO3 23 mmol/L (21-28) Arterial Blood Base Excess -3 mmol/L (-3-3) FiO2 40.0 Sodium Level 141 mmol/L (136-145) 141 mmol/L (136-145) Potassium Level 4.5 mmol/L (3.5-5.1) 4.8 mmol/L (3.5-5.1) Chloride Level 104 mmol/L (98-107) 106 mmol/L (98-107) Carbon Dioxide Level 29 mmol/L (21-32) 29 mmol/L (21-32) Anion Gap 8 (6-14) 6 (6-14) Blood Urea Nitrogen 24 mg/dL (7-20) 21 mg/dL (7-20) Creatinine 0.8 mg/dL (0.6-1.0) 0.8 mg/dL (0.6-1.0) Estimated GFR (Cockcroft-Gault) 71.3 71.3 BUN/Creatinine Ratio 30 (6-20) Glucose Level 133 mg/dL (70-99) 133 mg/dL (70-99) Calcium Level 9.1 mg/dL (8.5-10.1) 9.1 mg/dL (8.5-10.1) Total Bilirubin 0.2 mg/dL (0.2-1.0) Aspartate Amino Transf (AST/SGOT) 22 U/L (15-37) Alanine Aminotransferase (ALT/SGPT) 24 U/L (14-59) Alkaline Phosphatase 103 U/L (46-116) Troponin I Quantitative < 0.017 ng/mL (0.000-0.055) VE-Rnr-M-Type Natriuretic Peptide 432 pg/mL (0-124) Total Protein 7.6 g/dL (6.4-8.2) Albumin 3.6 g/dL (3.4-5.0) Albumin/Globulin Ratio 0.9 (1.0-1.7) Nasal Screen MRSA (PCR) Negative (Negative) NORBERTO FONTANEZ MD Oct 19, 2016 08:49
[2016-10-19] MEDS ORDERED: METOPROLOL SUCC 24HR ER 25 MG TAB.ER.24H. PO SCH (09:00)
[2016-10-19 09:01] LABS: PLT ESTIMATE ADEQUATE (ADEQUATE)
--- NOTE | 2016-10-19 21:27 | HP ---
ADMIT DATE: 10/18/2016 CHIEF COMPLAINT AND HISTORY OF PRESENT ILLNESS: This is a 70-year-old white female who is well known to me from followup in the office. The patient was having increasing shortness of breath over the 2 to 3 days prior to admission, which acutely exacerbated with her 's spraying for bugs in the house. She was brought to the Emergency Room where en route she had respiratory failure with O2 sats in the low 80s, required BiPAP therapy en route, and upon presentation to the Emergency Room, had already started to clear some with a decent blood gas on 40% FiO2 on admission with pO2 of 76 and pCO2 of 44. Chest x-ray showed emphysema with no acute changes. CBC was essentially unremarkable. She did admit several episodes over the last day or so coughing up bright red blood. She has done this in the past with a negative workup for it back at that point in time. PAST MEDICAL HISTORY: Remarkable for the COPD, coronary artery disease with prior [place]. She has a pacemaker placement. She has a longstanding history of seizure disorder, which is controlled with brand name Tegretol and has actually experienced seizures when the pharmacy switched her to the generic without approval in the past. PAST SURGICAL HISTORY: She has had a prior tonsillectomy. MEDICATIONS: Brought with the patient, listed on the computer and have been addressed. ALLERGIES: INCLUDE OXYCODONE. SOCIAL HISTORY: She continues to smoke. She is a nondrinker, does not use drugs. , lives at home with her . FAMILY HISTORY: Noncontributory. REVIEW OF SYSTEMS: As mentioned above. PHYSICAL EXAMINATION: GENERAL: She is a well-developed, well-nourished white female in no acute distress at the time of my examination. VITAL SIGNS: Stable. She is afebrile. HEENT: Unremarkable. She is on O2 per nasal cannula at 4 liters per nasal cannula. NECK: Supple, without thyromegaly. CHEST: Reveals decreased breath sounds, but clear. HEART: Regular rate and rhythm without S3, S4, or murmur. ABDOMEN: Soft, nontender, without hepatosplenomegaly or masses. EXTREMITIES: Without cyanosis, clubbing or edema. NEUROLOGIC: She is intact. IMPRESSION: Acute respiratory failure due to exacerbation of chronic obstructive pulmonary disease with hemoptysis in a patient with multiple other problems listed above. PLAN: The patient has been admitted, IV steroids, pulmonary toilet. Pulmonary consultation has been obtained. She will be monitored in the ICU with her tenuous situation en route to the hospital. The patient will be monitored, managed and treated appropriately. NORBERTO FONTANEZ MD DR: SHAKA/sumi JOB#: [id number] / [id number]
== END 2016-10-19 20:00 | disposition home or self-care (01) | DRG 189 ==
LOC: ER 10:12 → 1 WEST ICU 10:25 → 5 SOUTH 10-19 12:20
PROVIDERS: ADMIT Family Medicine; ATTEND Family Medicine
PROC: 5A09357 Assistance with Respiratory Ventilation, Less than 24 Consecutive Hours, Continuous Positive Airway Pressure (ICD-10-PCS; principal; 2016-10-18)
DX: J96.01 Acute respiratory failure with hypoxia (principal); J44.0 Chronic obstructive pulmonary disease with (acute) lower respiratory infection; J44.1 Chronic obstructive pulmonary disease with (acute) exacerbation; R04.2 Hemoptysis; F17.210 Nicotine dependence, cigarettes, uncomplicated; G40.909 Epilepsy, unspecified, not intractable, without status epilepticus; J20.9 Acute bronchitis, unspecified; I25.10 Atherosclerotic heart disease of native coronary artery without angina pectoris; I25.2 Old myocardial infarction; Z95.0 Presence of cardiac pacemaker; Z72.89 Other problems related to lifestyle; Z88.5 Allergy status to narcotic agent
CPT/HCPCS: 36415; 36600; 71010; 71250; 80048; 80053; 82805; 83880; 84484; 85007; 85027; 85610; 85730; 87641; 93005; 94250; 94620; 94640; 94660; 96374; 96375; J2060; J2405; J2930; J7620; 99291-25

== ENCOUNTER → 2017-01-25 | Outpatient (CLI) | payer OTHER, MEDICARE ==
[2016-10-19 12:00] VITALS: BP 160/72
[~2017-01-25] MED LIST changes: +METO-239 PO; -METO25TA9 PO
--- NOTE | 2017-01-25 09:12 | RAD ---
Examination: CT chest without contrast History: History of pulmonary opacity Comparison: 10/16/2016 Technique: Axial CT images were performed without contrast. Coronal and sagittal reformats were performed, PQRS Compliance Statement: One or more of the following individualized dose reduction techniques were utilized for this examination: 1. Automated exposure control 2. Adjustment of the mA and/or kV according to patient size 3. Use of iterative reconstruction technique Findings: The visualized thyroid gland grossly appears unremarkable. The central airways are patent. The ascending aorta measures 3.1 cm in transverse dimension. Diffuse coronary artery calcifications identified. No evidence of pericardial effusion. No radiologically significant mediastinal lymphadenopathy identified. Severe emphysematous changes identified in the bilateral lungs. Apical scarring changes identified in the left lung apex. There is a small partially solid parenchymal opacity identified abutting the minor fissure in the right upper lobe of the lung measuring 9 mm grossly similar to prior exam. There is mild pleural thickening identified in the anterior aspect of the minor fissure grossly similar to prior exam. No evidence of pleural effusion or pneumothorax. Calcified granuloma identified in the left lower lobe of the lung. Cardiac pacer is identified. The visualized noncontrasted liver, spleen, adrenals grossly appears unremarkable. Moderate degenerative changes thoracic spine. There is mild superior endplate compression change of T7 vertebral body which is new since prior exam. Impression: 1. 9 mm pulmonary nodule identified in the right upper lobe of the lung abutting the minor fissure grossly similar to prior exam. Continued follow-up is recommended. 2. Severe pulmonary emphysema disease. 3. Coronary artery calcifications. 4. New mild superior endplate compression change of T7 vertebral body.
== END | disposition home or self-care (01) ==
LOC: CT 07:57
PROVIDERS: ATTEND Internal Medicine Pulmonary Disease
DX: J43.9 Emphysema, unspecified (principal); I25.10 Atherosclerotic heart disease of native coronary artery without angina pectoris
CPT/HCPCS: 71250

== ENCOUNTER → 2017-06-17 | Outpatient (CLI) | payer OTHER, MEDICARE | END | disposition home or self-care (01) | LOC: CT 09:25 | DX: J43.9 Emphysema, unspecified (principal); S22.080G Wedge compression fracture of T11-T12 vertebra, subsequent encounter for fracture with delayed healing; I70.0 Atherosclerosis of aorta; R91.1 Solitary pulmonary nodule; X58.XXXD Exposure to other specified factors, subsequent encounter | CPT/HCPCS: 71250 ==

== ENCOUNTER → 2017-06-24 | Outpatient (CLI) | payer OTHER, MEDICARE | END | disposition home or self-care (01) | LOC: MAMMO 15:07 | DX: Z12.31 Encounter for screening mammogram for malignant neoplasm of breast (principal); I65.23 Occlusion and stenosis of bilateral carotid arteries; R42 Dizziness and giddiness; R09.89 Other specified symptoms and signs involving the circulatory and respiratory systems | CPT/HCPCS: 77067; 93880 ==

== ENCOUNTER → 2017-12-27 | Outpatient (CLI) | payer OTHER, MEDICARE ==
[2016-10-19 12:00] VITALS: BP 160/72
--- NOTE | 2017-12-27 08:59 | RAD ---
Examination: CT chest without contrast HISTORY: History of lung nodule follow-up COMPARISON: 06/17/2017 TECHNIQUE: Axial CT images of the chest performed without contrast. Coronal and sagittal reformats are performed Exposure: One or more of the following individualized dose reduction techniques were utilized for this examination: 1. Automated exposure control 2. Adjustment of the mA and/or kV according to patient size 3. Use of iterative reconstruction technique Findings: The central airways are patent. The heart size grossly appears unremarkable. The ascending aorta measures 3.1 cm in transverse dimension. Aortic atherosclerosis identified. Coronary artery calcifications identified. No evidence of pericardial effusion. No radiologically significant mediastinal lymphadenopathy. Severe bilateral lung emphysematous changes identified. There is a 9 mm nodule identified in the right upper lobe of the lung abutting the minor fissure similar to prior exam. There is a small 1.3 cm nodule or lymph node or scarring identified in the right middle lobe of the lung abutting the minor fissure. No evidence of pleural effusion or pneumothorax. Apical lung scarring changes identified in the left apical lung similar to prior exam. These are similar since the October 18, 2016. No evidence of pleural effusion or pneumothorax. Calcified granuloma identified in the left lower lobe of the lung. The visualized noncontrasted liver, spleen, adrenals grossly appears unremarkable. The stomach is mildly distended. Mild degenerative changes identified in the thoracic spine. There is minimal superior endplate compression change of T7 vertebral body similar to prior exam. Left-sided cardiac pacer is identified. IMPRESSION: 1. Unchanged right upper lobe, right middle lobe nodules stable since September 2016. 2. Severe emphysematous changes in the lungs. 3. Apical lung scarring changes similar to prior exam. 4. Coronary artery calcifications. Electronically signed by: Colin Perez MD (12/27/2017 8:57 AM) [id number]
== END | disposition home or self-care (01) ==
LOC: CT 08:24
PROVIDERS: ATTEND Internal Medicine Critical Care Medicine
DX: J43.8 Other emphysema (principal); I25.10 Atherosclerotic heart disease of native coronary artery without angina pectoris; J84.10 Pulmonary fibrosis, unspecified; I70.0 Atherosclerosis of aorta; K31.89 Other diseases of stomach and duodenum; I25.2 Old myocardial infarction; I10 Essential (primary) hypertension; E78.5 Hyperlipidemia, unspecified; R91.8 Other nonspecific abnormal finding of lung field; Z87.891 Personal history of nicotine dependence; Z95.0 Presence of cardiac pacemaker
CPT/HCPCS: 71250

== ENCOUNTER → 2018-05-28 | Outpatient (CLI) | payer OTHER, MEDICARE ==
[2016-10-19 12:00] VITALS: BP 160/72
--- NOTE | 2018-05-28 09:42 | RAD ---
MR#: [id number] Date of Study: 05/28/2018 Ordering Physician: DEN SHERMAN, Referring Physician: DEN SHERMAN, Tech: Pelon Cooley MBA, RDMS, RVT, RDCS, RTR APPROVED REPORT Patient Location: OUT-PATIENT Laterality:Bilateral Indications PAD Doppler Spectral Velocity Analysis Right Left pCCA 65/10 cm/spCCA 86/24 cm/s mCCA 68/15 cm/smCCA 89/26 cm/s dCCA 67/11 cm/sdCCA 86/21 cm/s Bulb 228/91 cm/sBulb 151/42 cm/s ECA 92/ cm/sECA 521/ cm/s pICA 257/33 cm/spICA 104/23 cm/s Ankur 129/26 cm/smICA 109/30 cm/s dICA 132/30 cm/sdICA 96/23 cm/s Vert. 96/ cm/sVert. 58/ cm/s Subcl. 135/ cm/sSubcl. 130/ cm/s ICA/CCA 3.78ICA/CCA 1.27 Findings Grayscale images of the bilateral carotid bifurcations reveal moderate heavy calcific plaque. On the right based on velocity criteria there is greater than 70% stenosis involving the proximal int ernal carotid artery. ICA to CCA ratio is 3.8. The external carotid velocities are within normal limi ts. On the left elevated velocities are noted in the carotid bulb and a peak of approximately 151 7 m/s s uggestive of moderate internal carotid disease. There is calcific plaque at the bulb extending into t he external carotid vessels obscuring the ostium of the internal carotid artery and therefore exact s tenosis is difficult to calculate. The external carotid artery appears to be at least greater than 75 % stenosis. Bilateral vertebral velocities are within normal limits. Critical Notification Critical Value: No <Conclusion> 1. Severe >percent stenosis involving the right internal carotid artery. 2. Probable at least moderate disease involving the left internal carotid artery. 3. Consider CT angiographic of the neck for further delineation of stenosis. Signed by : Den Sherman, Electronically Approved : 05/28/2018 09:39:44
--- NOTE | 2018-05-28 11:33 | CARD ---
MR#: [id number] Date of Study: 05/28/2018 Ordering Physician: DEN SHERMAN, Referring Physician: DEN SHERMAN, Tech: Ellen Ford APPROVED REPORT EXAM: Two-dimensional and M-mode echocardiogram with Doppler and color Doppler. Other Information Quality : AverageHR: 71bpm INDICATION COPD CAD Surgery/Intervention Pacemaker: RISK FACTORS Hypertension Hyperlipidemia Smoking 2D DIMENSIONS RVDd2.6 (2.9-3.5cm)Left Atrium(2D)2.9 (1.6-4.0cm) IVSd1.1 (0.7-1.1cm)Aortic Root(2D)2.8 (2.0-3.7cm) LVDd4.0 (3.9-5.9cm)LVOT Diameter2.0 (1.8-2.4cm) PWd1.1 (0.7-1.1cm)LVDs2.2 (2.5-4.0cm) FS (%) 45.5 %SV53.8 ml LVEF(%)77.4 (>50%) Aortic Valve AoV Peak Truman.128.9cm/sAoV VTI25.2cm AO Peak GR.6.6mmHgLVOT Peak Truman.74.8cm/s LVOT VTI 19.01cmAO Mean GR.3mmHg ISRRAEL (VMAX)1.18rb0XUZ (VTI)2.27cm2 Mitral Valve MV E Mifvtash91.0cm/sMV E Peak Gr.109mmHg MV DECEL [id number] A Gnlkqwea143.7cm/s MV WNH90sfH/A Ratio0.8 MVA (PHT)2.76cm2 TDI E/Lateral E'11.8E/Medial E'18.8 Pulmonary Valve PV Peak Hgoaffcr63.1cm/sPV Peak Grad.3mmHg Tricuspid Valve TR P. Amakzxgt529fj/sRAP GUOOKARE4ddGd TR Peak Gr.46upAnMFIN95gpCg Pulmonary Vein S1 Fewywomg97.5cm/sD2 Wmzpvlyb34.1cm/s PVa mexfbkrr790ftpm LEFT VENTRICLE The left ventricle is normal size. There is borderline concentric left ventricular hypertrophy. The l eft ventricular systolic function is normal. The Ejection Fraction is 55-60%. There is normal LV segm ental wall motion. Transmitral Doppler flow pattern is Grade I-abnormal relaxation pattern. RIGHT VENTRICLE The right ventricle is normal size. The right ventricle is borderline hypertrophied. The right ventri cular systolic function is normal. There is a pacemaker lead in the right ventricle. ATRIA The left atrium size is normal. The right atrium size is normal. The interatrial septum is intact wit h no evidence for an atrial septal defect or patent foramen ovale as noted on 2-D or Doppler imaging. AORTIC VALVE The aortic valve is thickened but opens well. Doppler and Color Flow revealed no significant aortic r egurgitation. There is no significant aortic valvular stenosis. MITRAL VALVE The mitral valve is moderately thickened. There is no evidence of mitral valve prolapse. There is no mitral valve stenosis. Doppler and Color-flow revealed trace mitral regurgitation. TRICUSPID VALVE The tricuspid valve is normal in structure and function. Doppler and Color Flow revealed trace tricus pid regurgitation. There is no tricuspid valve stenosis. PULMONIC VALVE The pulmonic valve is not well visualized. Doppler and Color Flow revealed no pulmonic valvular regur gitation. GREAT VESSELS The aortic root is normal in size. The IVC is normal in size and collapses >50% with inspiration. PERICARDIAL EFFUSION There is no evidence of significant pericardial effusion. Critical Notification Critical Value: No <Conclusion> The left ventricular systolic function is normal. The Ejection Fraction is 55-60%. There is normal LV segmental wall motion. Transmitral Doppler flow pattern is Grade I-abnormal relaxation pattern. There is a pacemaker lead in the right ventricle. Trace mitral regurgitation. Trace tricuspid regurgitation. There is no evidence of significant pericardial effusion. Signed by : Devon Barreto, Electronically Approved : 05/28/2018 11:30:48
== END | disposition home or self-care (01) ==
LOC: US 08:38
PROVIDERS: ATTEND Internal Medicine Cardiovascular Disease
DX: I65.21 Occlusion and stenosis of right carotid artery (principal); I11.9 Hypertensive heart disease without heart failure; E78.5 Hyperlipidemia, unspecified; F17.200 Nicotine dependence, unspecified, uncomplicated
CPT/HCPCS: 93306; 93880

== ENCOUNTER 2019-04-01 11:23 | Emergency (ER) | payer OTHER, MEDICARE ==
[~2019-04-01] VITALS: Ht 160 cm; Wt 55.3 kg
--- NOTE | 2019-04-01 12:31 | PHYS DOC ---
Past Medical History Past Medical History: COPD, CT Past Surgical History: Pacemaker, Tonsillectomy, Other Additional Past Surgical Histo: CARTIOD Alcohol Use: Occasionally Drug Use: None Adult General Chief Complaint Chief Complaint: COUGH HPI HPI Patient is a 73 year old female with history of COPD on 2 L of oxygen and coronary artery disease with pacemaker placement who presents with complaining of coughing blood. Patient complaining of episodes of hemoptysis for the last 3 days with string of blood that getting more pure bright red blood gradually. She'll complaining of increasing chronic cough. Patient denies chest pain, fever and chills, nausea and vomiting, increasing shortness of breath, lower extremity edema or pain, history of DVT and PE. Patient currently taking aspirin and Plavix and denies melena and hematemesis complaining of easy bruising. She currently smoking more than one pack a cigarettes a day. Review of Systems Review of Systems Constitutional: Denies fever or chills [] Eyes: Denies change in visual acuity, redness, or eye pain [] HENT: Denies nasal congestion or sore throat [] Respiratory: Reports chronic shortness of breath, reports cough and hemoptysis Cardiovascular: No additional information not addressed in HPI [] GI: Denies abdominal pain, nausea, vomiting, bloody stools or diarrhea [] : Denies dysuria or hematuria [] Musculoskeletal: Denies back pain or joint pain [] Integument: Denies rash or skin lesions [] Neurologic: Denies headache, focal weakness or sensory changes [] Endocrine: Denies polyuria or polydipsia [] All other systems were reviewed and found to be within normal limits, except as documented in this note. Allergies Allergies Allergies Coded Allergies Type Severity Reaction Last Updated Verified oxycodone Allergy Intermediate 10/25/13 No Physical Exam Physical Exam Constitutional: Well developed, well nourished, no acute distress, non-toxic appearance. [] HENT: Normocephalic, atraumatic, bilateral external ears normal, oropharynx moist, no oral exudates, nose normal. [] Eyes: PERRLA, EOMI, conjunctiva normal, no discharge. [] Neck: Normal range of motion, no tenderness, supple, no stridor. [] Cardiovascular:Heart rate regular rhythm, no murmur [] Lungs & Thorax: No respiratory distress, decrease of basilar lung sounds, no wheezing or rhonchi Abdomen: Bowel sounds normal, soft, no tenderness, no masses, no pulsatile masses. [] Skin: Warm, dry, no erythema, no rash. [] Back: No tenderness, no CVA tenderness. [] Extremities: No tenderness, no cyanosis, no clubbing, ROM intact, no edema. [] Neurologic: Alert and oriented X 3, normal motor function, normal sensory function, no focal deficits noted. [] Psychologic: Affect normal, judgement normal, mood normal. [] Current Patient Data Vital Signs Vital Signs Date Time Temp Pulse Resp B/P (MAP) Pulse Ox O2 Delivery O2 Flow Rate FiO2 04/01/19 11:45 97.4 88 22 170/77 (108) 84 Room Air 97.4 Lab Values Laboratory Tests Test 04/01/19 12:33 White Blood Count 5.4 x10^3/uL (4.0-11.0) Red Blood Count 4.42 x10^6/uL (3.50-5.40) Hemoglobin 14.6 g/dL (12.0-15.5) Hematocrit 42.7 % (36.0-47.0) Mean Corpuscular Volume 97 fL (79-100) Mean Corpuscular Hemoglobin 33 pg (25-35) Mean Corpuscular Hemoglobin Concent 34 g/dL (31-37) Red Cell Distribution Width 13.9 % (11.5-14.5) Platelet Count 203 x10^3/uL (140-400) Neutrophils (%) (Auto) 59 % (31-73) Lymphocytes (%) (Auto) 28 % (24-48) Monocytes (%) (Auto) 10 % (0-9) H Eosinophils (%) (Auto) 2 % (0-3) Basophils (%) (Auto) 1 % (0-3) Neutrophils # (Auto) 3.2 x10^3/uL (1.8-7.7) Lymphocytes # (Auto) 1.5 x10^3/uL (1.0-4.8) Monocytes # (Auto) 0.5 x10^3/uL (0.0-1.1) Eosinophils # (Auto) 0.1 x10^3/uL (0.0-0.7) Basophils # (Auto) 0.1 x10^3/uL (0.0-0.2) Prothrombin Time 13.1 SEC (11.7-14.0) Prothrombin Time INR 1.0 (0.8-1.1) Activated Partial Thromboplast Time 26 SEC (24-38) D-Dimer (Oly) 0.61 ug/mlFEU (0.00-0.50) H Sodium Level 141 mmol/L (136-145) Potassium Level 4.1 mmol/L (3.5-5.1) Chloride Level 103 mmol/L (98-107) Carbon Dioxide Level 31 mmol/L (21-32) Anion Gap 7 (6-14) Blood Urea Nitrogen 16 mg/dL (7-20) Creatinine 0.8 mg/dL (0.6-1.0) Estimated GFR (Cockcroft-Gault) 70.7 BUN/Creatinine Ratio 20 (6-20) Glucose Level 99 mg/dL (70-99) Lactic Acid Level 1.1 mmol/L (0.4-2.0) Calcium Level 8.6 mg/dL (8.5-10.1) Total Bilirubin 0.3 mg/dL (0.2-1.0) Aspartate Amino Transferase (AST) 20 U/L (15-37) Alanine Aminotransferase (ALT) 18 U/L (14-59) Alkaline Phosphatase 94 U/L (46-116) Creatine Kinase 33 U/L (26-192) Troponin I Quantitative < 0.017 ng/mL (0.000-0.055) LP-Nsk-S-Type Natriuretic Peptide 497 pg/mL (0-124) H Total Protein 7.5 g/dL (6.4-8.2) Albumin 3.4 g/dL (3.4-5.0) Albumin/Globulin Ratio 0.8 (1.0-1.7) L Laboratory Tests 04/01/19 12:33 Laboratory Tests 04/01/19 12:33 EKG EKG EKG interpreted by me. EKG at 1155 showed normal sinus rhythm at rate of 72, normal [place] and QT intervals, no acute ST and T-wave elevation. Radiology/Procedures Radiology/Procedures [][facility] [address] [place], [place] [id number] IMAGING REPORT Signed PATIENT: RASHAUN POZO LACCOUNT: [id number] : 1945 LOCATION: ER AGE: 73 SEX: F EXAM STATUS: REG ER ORD. PHYSICIAN: RON VU MD REASON: hemoptysis PROCEDURE: PORTABLE CHEST 1V Single view chest dated 04/01/2019. Comparison made 12/27/2017. Clinical indication: Hemoptysis. FINDINGS: Single upright portable exam performed. Heart and mediastinal contours are stable. Dual lead left subclavian pacer in place, unchanged. Lungs are somewhat hyperinflated and there are coarsened interstitial markings bilaterally, unchanged. Biapical lucency consistent with emphysema. There is some focal increased density at the left apex, similar to prior study. Couple of scattered nodular foci at the mid and lower lung zone on the right, unchanged. There are a few scattered calcified granuloma. IMPRESSION: 1. No acute radiographic abnormality. 2. Findings consistent with COPD. 3. There are nodular densities in the right lung and at the left lung apex that does not appear significant changed from recent chest CT. Continued follow-up imaging to ensure stability. Electronically signed by: Josh Chance MD (04/01/2019 12:51 PM) [facility] DICTATED and SIGNED BY: JOSH CHANCE MD DATE: 04/01/19 1251 Course & Med Decision Making Course & Med Decision Making Pertinent Labs and Imaging studies reviewed. (See chart for details) Evaluation of patient in ER showed 73-year-old female patient with history of COPD on home oxygen and currently smoking more than one pack a cigarettes a day with complaining of hemoptysis for 3 days. She had unremarkable CBC and CMP except for mild elevation of BNP. D-dimer was very very mildly elevated without concern for PE. Chest x-ray did not show acute finding. Patient had the same problem previously with diagnosis of pneumonia. Patient currently taking aspirin and Plavix. 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 Jah Disclaimer [place] Disclaimer This electronic medical record was generated, in whole or in part, using a voice recognition dictation system. Departure Departure Impression: Primary Impression: COPD exacerbation Additional Impressions: Hemoptysis Tobacco abuse Elevated brain natriuretic peptide (BNP) level Disposition: HOME, SELF-CARE (at 1327) Condition: STABLE Referrals: NORBERTO FONTANEZ MD (PCP) Patient Instructions: Chronic Obstructive Pulmonary Disease Exacerbation, Hemoptysis, Smoking Cessation, Tips For Success Additional Instructions: Follow-up with your stewardess supervisor on Saturday Follow-up with your primary care physician in 3-5 days Return to ER if not getting better Scripts Benzonatate (TESSALON PERLE) 100 Mg Capsule 1 CAP PO TID for cough, #21 CAP Prov: RON VU MD 04/01/19 Methylprednisolone (MEDROL) 4 Mg Tab.ds.pk 1 PKG PO UD for inflammation, #1 PKG Prov: RON VU MD 04/01/19 Doxycycline Hyclate (DOXYCYCLINE HYCLATE) 100 Mg Capsule 1 CAP PO BID, #14 CAP Prov: RON VU MD 04/01/19 Problem Qualifiers RON VU MD Apr 01, 2019 12:31
--- NOTE | 2019-04-01 12:43 | EKG ---
[facility] [address] [place] [address] Test Date: 2019-04-01 Test Time: 11:55:48 Pat Name: RASHAUN POZO Department: Room: Gender: F [employer] Player: : 1945 Requested By: RON VU Order Number: [id number] Reading MD: Measurements Intervals [place] Rate: 71 P: 71 PA: 162 QRS: 31 QRSD: 84 T: 54 QT: 372 QTc: 408 Interpretive Statements SINUS RHYTHM QRS(T) CONTOUR ABNORMALITY CANNOT RULE OUT ANTEROSEPTAL MYOCARDIAL DAMAGE BORDERLINE ECG No previous ECG available for comparison
[2019-04-01 12:45] LABS: BASO # 0.1 x10^3/uL (0.0-0.2); BASO % 1 % (0-3); EOS # 0.1 x10^3/uL (0.0-0.7); EOS % 2 % (0-3); HEMATOCRIT 42.7 % (36.0-47.0); HEMOGLOBIN 14.6 g/dL (12.0-15.5); LYMPH # 1.5 x10^3/uL (1.0-4.8); LYMPH % 28 % (24-48); MEAN CORPUSCULAR HEMOGLOBIN 33 pg (25-35); MEAN CORPUSCULAR HGB CONC 34 g/dL (31-37); MEAN CORPUSCULAR VOLUME 97 fL (79-100); MONO # 0.5 x10^3/uL (0.0-1.1); MONO % 10 % (0-9); NEUT # 3.2 x10^3/uL (1.8-7.7); NEUT % 59 % (31-73); PLATELET COUNT 203 x10^3/uL (140-400); RED BLOOD COUNT 4.42 x10^6/uL (3.50-5.40); RED CELL DISTRIBUTION WIDTH 13.9 % (11.5-14.5); WHITE BLOOD COUNT 5.4 x10^3/uL (4.0-11.0)
--- NOTE | 2019-04-01 12:54 | RAD ---
Single view chest dated 04/01/2019. Comparison made 12/27/2017. Clinical indication: Hemoptysis. FINDINGS: Single upright portable exam performed. Heart and mediastinal contours are stable. Dual lead left subclavian pacer in place, unchanged. Lungs are somewhat hyperinflated and there are coarsened interstitial markings bilaterally, unchanged. Biapical lucency consistent with emphysema. There is some focal increased density at the left apex, similar to prior study. Couple of scattered nodular foci at the mid and lower lung zone on the right, unchanged. There are a few scattered calcified granuloma. IMPRESSION: 1. No acute radiographic abnormality. 2. Findings consistent with COPD. 3. There are nodular densities in the right lung and at the left lung apex that does not appear significant changed from recent chest CT. Continued follow-up imaging to ensure stability. Electronically signed by: Josh Chance MD (04/01/2019 12:51 PM) [facility]
[2019-04-01 12:57] LABS: CALCIUM 8.6 mg/dL (8.5-10.1); CREATININE 0.8 mg/dL (0.6-1.0); GFR 70.7; POTASSIUM 4.1 mmol/L (3.5-5.1); PROTHROMBIN TIME PATIENT 13.1 SEC (11.7-14.0)
[2019-04-01 13:00] LABS: D-DIMER 0.61 ug/mlFEU (0.00-0.50)
[2019-04-01 13:08] LABS: ALBUMIN 3.4 g/dL (3.4-5.0); ALBUMIN/GLOBULIN RATIO 0.8 (1.0-1.7); TOTAL BILIRUBIN 0.3 mg/dL (0.2-1.0); TOTAL PROTEIN 7.5 g/dL (6.4-8.2)
[2019-04-01] MEDS ORDERED: DOXY100C2 PO ×2 (13:30→13:31)
[2019-04-01] MEDS ORDERED: BENZ100C PO ×2 (13:30→13:31)
[2019-04-01] MEDS ORDERED: METH4TAB2 PO ×2 (13:30→13:31)
[2019-04-01 13:40] VITALS: BP 167/93
== END 2019-04-01 13:41 | disposition home or self-care (01) ==
LOC: ER 11:23
DX: J44.1 Chronic obstructive pulmonary disease with (acute) exacerbation (principal); R04.2 Hemoptysis; R79.0 Abnormal level of blood mineral; F17.210 Nicotine dependence, cigarettes, uncomplicated; J44.9 Chronic obstructive pulmonary disease, unspecified; I25.2 Old myocardial infarction; Z95.0 Presence of cardiac pacemaker; Z88.5 Allergy status to narcotic agent
CPT/HCPCS: 36415; 71045; 80053; 82550; 83605; 83880; 84484; 85025; 85379; 85610; 85730; 93005; 99285-25

== ENCOUNTER → 2019-04-28 | Outpatient (CLI) | payer OTHER, MEDICARE ==
[2019-04-01 13:40] VITALS: BP 167/93
[~2019-04-28] MED LIST changes: +BENZ100C PO; +DOXY100C2 PO; +METH4TAB2 PO
--- NOTE | 2019-04-28 17:00 | RAD ---
CT CHEST WO CONTRAST Indication: Hemoptysis Technique: Noncontrast CT imaging was performed of the chest, multiplanar reconstruction images submitted. One or more of the following individualized dose reduction techniques were utilized for this examination: 1. Automated exposure control 2. Adjustment of the mA and/or kV according to patient size 3. Use of iterative reconstruction technique. Comparison: December 27, 2017; 06/17/2017 Findings: There is some motion. There is again severe emphysema with upper zone predominance. 0.7 cm right upper lobe nodule image 29 series 3 is similar. Right lower lobe subpleural density about 0.8 cm image 34 series 3 is similar. Tiny dense subpleural right lower lobe nodule about 0.2 cm image 33 series 3 is stable. 0.6 cm focus of subpleural density of the right lower lobe image 27 series 3 is more apparent on this exam although may be component of atelectasis. There is again more linear distributed mild right lower lobe density such as seen on images 38-40. Mild right middle lobe density medially abutting the pleural surface up to about 1.1 cm transverse image 41 series 3 is fairly similar. 0.5 cm focus of somewhat nodular density along the minor fissure of the right middle lobe image 39 series 3 is similar. Focus of left apical density near the pleural surface about 1.9 cm transverse by 1.8 cm AP is similar best seen image 8 series 3. There is no new lobar consolidation or pleural or pericardial fluid. There is left electronic cardiac device. There is atherosclerotic calcification of the thoracic aorta and coronary calcification. Major airways are patent. Mild fullness of the left adrenal gland is stable. Superior T7 endplate compression deformity is stable. IMPRESSION: 1. There is a small focus of increased subpleural density of the right lower lobe about 0.6 cm, may be component of atelectasis and fibrotic change although nodule not excluded. 3-6 month follow-up is advised given change. Other foci of nodular density are similar in appearance. There is again severe emphysema with upper zone predominance. 2. There is some coronary calcification. Electronically signed by: Ashwin Craig MD (04/28/2019 4:57 PM) [facility]
== END | disposition home or self-care (01) ==
LOC: CT 08:40
PROVIDERS: ATTEND Internal Medicine Pulmonary Disease
DX: J43.8 Other emphysema (principal); R91.8 Other nonspecific abnormal finding of lung field; I70.0 Atherosclerosis of aorta; I25.10 Atherosclerotic heart disease of native coronary artery without angina pectoris; M43.8X4 Other specified deforming dorsopathies, thoracic region
CPT/HCPCS: 71250

== ENCOUNTER → 2020-10-18 | Outpatient (CLI) | payer MEDICARE, OTHER ==
--- NOTE | 2020-10-18 13:43 | RAD ---
PQRS Compliance Statement: One or more of the following individualized dose reduction techniques were utilized for this examinat ion: 1. Automated exposure control 2. Adjustment of the mA and/or kV according to patient size 3. Use of iterative reconstruction technique CT THORAX WO Clinical Indication: Reason: SOA, COUGH / Comparison: CT chest without contrast April 28, 2019. TECHNIQUE: Helical CT imaging of the chest is performed without IV contrast. Findings: There is left chest dual-chamber pacer. Atherosclerotic thoracic aorta. Three-vessel coronary artery disease. There is no mediastinal adenopathy. Small calcified left hilar lymph nodes. The great vessel s are normal caliber. The cardiac size is normal, no pericardial effusion. There is no pleural effusion. There is severe centrilobular emphysema. Scarring in the left lung apex is stable. There is a new nodular opacity in the posterior right upper lobe with associated peribron chial thickening, image 23. There is a 5 mm nodular opacity in the right upper lobe that is unchanged , image 31. 7 mm nodule in the right middle lobe is stable, image 41. There is a new 6 mm nodular opa [place] in the right lower lobe, image 39. Stable left lower lobe calcified granuloma. Nodularity of the left adrenal gland is stable. Stable old compression fracture of the T7 vertebral body. There is chronic compression fracture at th e inferior endplate of T8 that has increased from prior study. There is subacute to chronic appearing compression fracture of the T12 vertebral body mainly involving the inferior endplate anteriorly. IMPRESSION: 1. There is a new nodular opacity in the posterior right upper lobe with associated peribronchial th ickening that is likely infectious/inflammatory. 2. There is a new 6 mm nodule in the right lower lobe. 3. Severe centrilobular emphysema. 4. Subacute to chronic appearing compression fracture of the inferior endplate of the T12 vertebral body. Electronically signed by: Odell Goode MD (10/18/2020 9:56 AM) [facility]
== END ==
LOC: CT 09:40
PROVIDERS: ATTEND Internal Medicine Pulmonary Disease
DX: J43.2 Centrilobular emphysema (principal); J92.9 Pleural plaque without asbestos; R05 Cough; R06.02 Shortness of breath; M48.54XA Collapsed vertebra, not elsewhere classified, thoracic region, initial encounter for fracture; I70.0 Atherosclerosis of aorta; I25.10 Atherosclerotic heart disease of native coronary artery without angina pectoris; J98.4 Other disorders of lung; J84.10 Pulmonary fibrosis, unspecified
CPT/HCPCS: 71250

== ENCOUNTER → 2021-01-31 | Outpatient (CLI) | payer MEDICARE ==
[~2021-01-31] MED LIST changes: -DOXY100C2 PO; +DOXY100C3 PO
--- NOTE | 2021-01-31 08:58 | RAD ---
CT of the chest without contrast 01/31/2021 INDICATION: Follow-up lung nodule COMPARISON STUDY: CT of the chest October 18, 2020 TECHNIQUE: Multidetector CT imaging of the chest was performed without contrast FINDINGS: Severe emphysematous changes are noted. Extensive bullous change noted in the right upper l obe. There is an area of atelectasis along the major fissure which allowing for differences in slice selection technique is similar to comparison study. A definitive increase in size is not appreciated. Other scattered pulmonary nodules bilaterally are unchanged. 5 mm nodule in the right upper lobe is unchanged (thin axial image 155). Small 7 mm triangular nodule right middle lobe is unchanged (axial image 200). 6 mm nodular opacity in the lateral right lower lobe is unchanged (axial image 188). Stab le left lower lobe calcified granuloma. Heart size is normal. No pericardial effusion is identified. Pacemaking device from a left subclavian approach is similar. Coronary artery calcification noted. Sc attered small mediastinal lymph nodes are seen without evidence of pathologically enlarged adenopathy . The upper abdomen demonstrates no acute normality. No acute osseous changes are identified. Grossly stable compression deformities of the T12 T8, T7 vertebral bodies noted. Osteopenia noted. IMPRESSION: 1. Overall stable appearance of the chest. Severe emphysematous. Multiple noncalcified pulmonary nodu les are similar. 2. Area of volume loss along the superior aspect of the right major fissure is grossly similar. Atten tion on follow-up recommended. CT DOSING PQRS STATEMENT: One or more of the following individualized dose reduction techniques were utilized for this examinat ion: 1. Automated exposure control 2. Adjustment of the mA and/or kV according to patient size 3. Use of iterative reconstruction technique Electronically signed by: Godfrey Carrasquillo MD (01/31/2021 8:55 AM) [id number]
== END ==
LOC: CT 09:58
PROVIDERS: ATTEND Internal Medicine Pulmonary Disease
DX: R91.8 Other nonspecific abnormal finding of lung field (principal); J43.9 Emphysema, unspecified; J98.11 Atelectasis; J84.10 Pulmonary fibrosis, unspecified; I25.10 Atherosclerotic heart disease of native coronary artery without angina pectoris; M85.88 Other specified disorders of bone density and structure, other site; M43.8X4 Other specified deforming dorsopathies, thoracic region
CPT/HCPCS: 71250

== ENCOUNTER 2021-07-16 06:37 | Emergency (ER) | payer MEDICARE ==
[~2021-07-16] VITALS: Ht 162.6 cm; Wt 68.2 kg
--- NOTE | 2021-07-16 06:47 | PHYS DOC ---
Past Medical History Past Medical History: COPD, PA Past Surgical History: Pacemaker, Tonsillectomy, Other Additional Past Surgical Histo: CARTIOD Smoking Status: Current Every Day Smoker Alcohol Use: Occasionally Drug Use: None General Adult EDM: Chief Complaint: CHEST PAIN HPI: HPI: 75-year-old female past medical history of COPD with tobacco dependence on 2L NC (follows w/Dr. Coffey), CAD with AMI in 2004 (on plavix) and bradycardia w/pacemaker, presents to the ED brought by EMS with complaints of nonradiating, sternal chest pain described as "pulling" that woke pt up, lasted approximately 20 minutes. Reports associated shortness of breath but states this is chronic. Is currently asymptomatic. EMS gave 324 mg of aspirin. Review of Systems: Review of Systems: Constitutional: Denies fever or chills. [] Eyes: Denies change in visual acuity. [] HENT: Denies nasal congestion or sore throat. [] Respiratory: Denies cough or hemoptysis Cardiovascular: Denies syncope or edema. [] GI: Denies abdominal pain, nausea, vomiting, bloody stools or diarrhea. [] : Denies dysuria or dysuria Musculoskeletal: Denies back pain or joint pain. [] Integument: Denies rash or diaphoresis Neurologic: Denies headache, focal weakness or sensory changes. [] Endocrine: Denies polyuria or polydipsia. [] Lymphatic: Denies swollen glands. [] Psychiatric: Denies depression or anxiety. [] Heart Score: C/O Chest Pain: Yes HEART Score for Chest Pain: HEART Score for Chest Pain Response (Comments) Value History Moderately Suspicious 1 Age > 65 2 Risk Factors >3 Risk Factors or Hx CAD 2 Troponin < Normal Limit 0 Total 5 Risk Factors: Risk Factors: DM, Current or recent (<one month) smoker, HTN, HLP, family history of CAD, obesity. Risk Scores: Score 0 - 3: 2.5% MACE over next 6 weeks - Discharge Home Score 4 - 6: 20.3% MACE over next 6 weeks - Admit for Clinical Observation Score 7 - 10: 72.7% MACE over next 6 weeks - Early Invasive Strategies Allergies: Allergies: Allergies Coded Allergies Type Severity Reaction Last Updated Verified oxycodone Allergy Intermediate 10/25/13 No Physical Exam: PE: Constitutional: Well developed, well nourished, no acute distress, non-toxic appearance. HENT: Normocephalic, atraumatic, Eyes: EOMI, conjunctiva normal, no discharge. Neck: Normal range of motion, supple, Cardiovascular: S1/2 present, regular rhythm Lungs & Thorax: Speaking in full sentences, bilateral equal chest rise, no tachypnea or increased work of breathing Abdomen: soft, no tenderness, Skin: Warm, dry, no erythema, no rash. [] Extremities: No tenderness, no cyanosis, no unilateral lower extremity edema Neurologic: Alert and oriented X 3, normal motor function, normal sensory function, no focal deficits noted. [] Psychologic: Affect normal, judgement normal, mood normal. [] EKG: EKG: Sinus rhythm with PACs 82 bpm, left axis deviation, normal intervals, no T wave inversion, no ST elevation or ST depression, no active chest pain Sinus rhythm 71 bpm, no axis deviation, normal intervals, no T wave inversion, no ST ovation or ST depression, no active chest pain Radiology/Procedures: Radiology/Procedures: IMAGING REPORT Signed PATIENT: RASHAUN POZO: [id number] : 1945 LOCATION: ER AGE: 75 SEX: F EXAM STATUS: PRE ER ORD. PHYSICIAN: ROB FLORIAN DO REASON: cp PROCEDURE: PORTABLE CHEST 1V AP chest. HISTORY: Chest pain AP view was taken of the chest. There are changes of chronic obstructive pulmonary disease. There is a left pacemaker with atrial ventricular leads without change. There are chronic interstitial changes in the lung bases suggesting fibrosis similar to an old study from March 2019. A new confluent infiltrate is not identified. IMPRESSION: 1. COPD. 2. Mild chronic interstitial lung disease likely fibrosis. 3. No new confluent infiltrate. Electronically signed by: Anjum Bustamante MD (07/16/2021 7:17 AM) [id number] DICTATED and SIGNED BY: ANJUM BUSTAMANTE MD DATE: 07/16/21 0714 IMAGING REPORT Signed PATIENT: RASHAUN POZO: [id number] : 1945 LOCATION: ER AGE: 75 SEX: F EXAM STATUS: REG ER ORD. PHYSICIAN: ROB FLORIAN DO REASON: SOA, R/O PE PROCEDURE: CT ANGIOGRAPHY CHEST CT arteriogram of the chest. HISTORY: Short of air CT arteriogram of the chest was done using 90 mL is Omnipaque 350 contrast. Sagittal and coronal MIP images were reconstructed. Person is made with a study from January 2021. There is moderate coronary artery calcification mainly in the LAD and circumflex. The upper aspect of liver and spleen are unremarkable. Adrenal glands are normal. There are emphysematous changes in the lungs. There is a calcified granuloma in the left lower lobe. There is calcification and scarring in the left apex unchanged. There is density in the posterior left lower lobe on image #[address] 3 without change. There is density along the fissure in the right lung measuring 1.8 x 0.7 cm mildly less prominent than on the prior study. There is a nodule in the lateral right upper lobe on image #76 measuring 6 mm without change. There is a density along the minor fissure on image #96 measuring 5.5 mm without change. There is scarring in the right middle lobe and lingula. No new infiltrates are noted. There are old thoracic compression fractures without change. This study is negative for a pulmonary embolus. IMPRESSION: 1. Severe COPD. 2. Density along the fissure in the right lung mildly less prominent than the prior study. 3. Other small pulmonary nodules without change. 4. No new mass or infiltrate noted. 5. Negative for pulmonary embolus. PQRS Compliance Statement: One or more of the following individualized dose reduction techniques were utilized for this examination: 1. Automated exposure control 2. Adjustment of the mA and/or kV according to patient size 3. Use of iterative reconstruction technique Electronically signed by: Anjum Bustamante MD (07/16/2021 8:22 AM) [id number] DICTATED and SIGNED BY: ANJUM BUSTAMANTE MD DATE: 07/16/21 0809 Course & Med Decision Making: Course & Med Decision Making Pertinent Labs and Imaging studies reviewed. (See chart for details) Concern for unstable angina/chest pain in a moderate risk patient. Patient has been asymptomatic emergency department. I reevaluated patient with at bedside, (patient consents to his/her/their knowledge and involvement in pts' medical care). [facility] 2 [facility] for stress test. D-dimer is elevated. CTA of the chest with no PE. Patient remains asymptomatic. Will admit for further medical management and cardiology consultation. Patient stable time of admission and agrees to this plan. I have spoken with the patient and/or caregivers. I have explained the patient's condition, diagnosis and treatment plan based on the information available to me at this time. I have answered the patient's and/or caregivers questions and answered any concerns. The patient and/or caregivers have as good an understanding of the patient's diagnosis, condition and treatment plan as can be expected at this point. The patient has been stabilized within the capability of the emergency department. The patient will be transported for fur ther care and management or will be moved to an observation or inpatient service. I have communicated with the staff or medical practitioner taking over this patient's care. Jah Disclaimer: Jah Disclaimer: This electronic medical record was generated, in whole or in part, using a voice recognition dictation system. Departure Departure Impression: Primary Impression: Chest pain Disposition: ADMITTED INPATIENT Admitting Physician: Norberto Hylton Condition: STABLE Referrals: NORBERTO HYLTON MD (PCP) ROB FLORIAN DO Jul 16, 2021 06:47
[2021-07-16 06:58] LABS: BASO # 0.1 x10^3/uL (0.0-0.2); BASO % 1 % (0-3); EOS # 0.3 x10^3/uL (0.0-0.7); EOS % 3 % (0-3); HEMATOCRIT 47.2 % (36.0-47.0); HEMOGLOBIN 15.4 g/dL (12.0-15.5); LYMPH % 30 % (24-48); MEAN CORPUSCULAR HEMOGLOBIN 32 pg (25-35); MEAN CORPUSCULAR HGB CONC 33 g/dL (31-37); MEAN CORPUSCULAR VOLUME 98 fL (79-100); MONO # 0.7 x10^3/uL (0.0-1.1); MONO % 7 % (0-9); NEUT % 60 % (31-73); PLATELET COUNT 235 x10^3/uL (140-400); RED BLOOD COUNT 4.82 x10^6/uL (3.50-5.40); RED CELL DISTRIBUTION WIDTH 13.9 % (11.5-14.5)
[2021-07-16 07:07] LABS: CALCIUM 8.6 mg/dL (8.5-10.1); CREATININE 0.9 mg/dL (0.6-1.0); GFR 61.4; POTASSIUM 3.9 mmol/L (3.5-5.1)
[2021-07-16 07:13] LABS: ALBUMIN 3.5 g/dL (3.4-5.0); ALBUMIN/GLOBULIN RATIO 0.8 (1.0-1.7); MAGNESIUM 2.2 mg/dL (1.8-2.4); TOTAL BILIRUBIN 0.4 mg/dL (0.2-1.0); TOTAL PROTEIN 7.7 g/dL (6.4-8.2)
--- NOTE | 2021-07-16 07:20 | RAD ---
AP chest. HISTORY: Chest pain AP view was taken of the chest. There are changes of chronic obstructive pulmonary disease. There is a left pacemaker with atrial ventricular leads without change. There are chronic interstitial changes in the lung bases suggesting fibrosis similar to an old study from March 2019. A new confluent in filtrate is not identified. IMPRESSION: 1. COPD. 2. Mild chronic interstitial lung disease likely fibrosis. 3. No new confluent infiltrate. Electronically signed by: Anjum Bustamante MD (07/16/2021 7:17 AM) [id number]
[2021-07-16] MEDS ORDERED: CONTRAST GIVEN. MC PRN (07:45)
[2021-07-16] MEDS: IOHEXOL 350 MG/ML 100 ML VIAL. IV ONE (08:07)
--- NOTE | 2021-07-16 08:24 | RAD ---
CT arteriogram of the chest. HISTORY: Short of air CT arteriogram of the chest was done using 90 mL is Omnipaque 350 contrast. Sagittal and coronal MIP images were reconstructed. Person is made with a study from January 2021. There is moderate coronary artery calcification mainly in the LAD and circumflex. The upper aspect of liver and spleen are unrem arkable. Adrenal glands are normal. There are emphysematous changes in the lungs. There is a calcifie d granuloma in the left lower lobe. There is calcification and scarring in the left apex unchanged. T here is density in the posterior left lower lobe on image #[address] without change. There is densit y along the fissure in the right lung measuring 1.8 x 0.7 cm mildly less prominent than on the prior study. There is a nodule in the lateral right upper lobe on image #76 measuring 6 mm without change. There is a density along the minor fissure on image #96 measuring 5.5 mm without change. There is sca rring in the right middle lobe and lingula. No new infiltrates are noted. There are old thoracic comp ression fractures without change. This study is negative for a pulmonary embolus. IMPRESSION: 1. Severe COPD. 2. Density along the fissure in the right lung mildly less prominent than the prior study. 3. Other small pulmonary nodules without change. 4. No new mass or infiltrate noted. 5. Negative for pulmonary embolus. PQRS Compliance Statement: One or more of the following individualized dose reduction techniques were utilized for this examinat ion: 1. Automated exposure control 2. Adjustment of the mA and/or kV according to patient size 3. Use of iterative reconstruction technique Electronically signed by: Anjum Bustamante MD (07/16/2021 8:22 AM) [id number]
[2021-07-16 09:04] VITALS: BP 145/67
--- NOTE | 2021-07-18 13:36 | EKG ---
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
--- NOTE | 2021-07-18 13:37 | EKG ---
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
== END 2021-07-16 09:05 | disposition left against medical advice (07) ==
LOC: ER 06:37
DX: R07.2 Precordial pain (principal); R06.02 Shortness of breath; J44.9 Chronic obstructive pulmonary disease, unspecified; I25.2 Old myocardial infarction; F17.200 Nicotine dependence, unspecified, uncomplicated; I25.10 Atherosclerotic heart disease of native coronary artery without angina pectoris; Z95.0 Presence of cardiac pacemaker
CPT/HCPCS: 36415; 71045; 71275; 80053; 83735; 83880; 84484; 85025; 85379; 93005; 99285; Q9967

== ENCOUNTER → 2021-08-22 | Outpatient (CLI) | payer MEDICARE ==
[~2021-08-22] MED LIST changes: +REGADENOSON 0.4 MG/5 ML DISP.SYRIN. IV ONE
--- NOTE | 2021-08-22 17:28 | CARD ---
MR#: [id number] Date of Study: 08/22/2021 Ordering Physician: DEN SHERMAN, Referring Physician: DEN SHERMAN, Tech: DELFIN KENNY [facility], T APPROVED REPORT EXAM: Two-dimensional and M-mode echocardiogram with Doppler and color Doppler. Other Information Quality : FairHR: 83bpm Rhythm : NSR INDICATION Dyspnea 2D DIMENSIONS Left Atrium(2D)3.9 (1.6-4.0cm)IVSd1.7 (0.7-1.1cm) Aortic Root(2D)3.4 (2.0-3.7cm)LVDd3.8 (3.9-5.9cm) LVOT Diameter2.0 (1.8-2.4cm)PWd0.5 (0.7-1.1cm) LVDs2.5 (2.5-4.0cm)FS (%) 34.6 % SV38.7 mlLVEF(%)64.5 (>50%) Aortic Valve AoV Peak Truman.126.8cm/sAoV VTI20.3cm AO Peak GR.6.4mmHgLVOT Peak Truman.96.3cm/s AO Mean GR.3mmHgAVA (VMAX)1.86cm2 Mitral Valve MV E Lcflioky52.6cm/sMV DECEL EMXJ760ml MV A Tvlcznmo545.8cm/sMV JRE37ut E/A Ratio0.7MVA (PHT)2.51cm2 TDI E/Lateral E'12.8E/Medial E'16.8 Pulmonary Valve PV Peak Asclrdei99.1cm/sPV Peak Grad.3mmHg Tricuspid Valve TR P. Ffwmrjht536om/sTR Peak Gr.19mmHg Pulmonary Vein S1 Kxcvoued05.6cm/sD2 Qietlyzu27.3cm/s PVa [id number] LEFT VENTRICLE The left ventricle is normal size. There is normal left ventricular wall thickness. The left ventricu lar systolic function is normal. The Ejection Fraction is 65%. There is normal LV segmental wall santi on. Transmitral Doppler flow pattern is Grade I-abnormal relaxation pattern. No left ventricle thromb us noted on this study. There is no ventricular septal defect visualized. There is no left ventricula r aneurysm. There is no mass noted in the left ventricle. RIGHT VENTRICLE The right ventricle is normal size. There is normal right ventricular wall thickness. The right ventr icular systolic function is normal. ATRIA The left atrium size is normal. The right atrium size is normal. The interatrial septum is intact wit h no evidence for an atrial septal defect or patent foramen ovale as noted on 2-D or Doppler imaging. AORTIC VALVE The aortic valve is trileaflet. The aortic valve is mildly thickened. Doppler and Color Flow revealed trace aortic regurgitation. There is no aortic valvular stenosis. There is no aortic valvular vegeta tion. MITRAL VALVE Mitral annular calcification is mild. There is no evidence of mitral valve prolapse. There is no mitr al valve stenosis. Doppler and Color Flow revealed mild mitral regurgitation. TRICUSPID VALVE The tricuspid valve is normal in structure and function. Doppler and Color Flow revealed mild tricusp id regurgitation. The pulmonary artery systolic pressure is estimated at 25 mmHg. There is no tricusp id valve prolapse or vegetation. There is no tricuspid valve stenosis. PULMONIC VALVE The pulmonary valve is normal in structure and function. There is no pulmonic valvular regurgitation. There is no pulmonic valvular stenosis. GREAT VESSELS The aortic root is normal in size. The ascending aorta is normal in size. The pulmonary artery is nor mal. The IVC is normal in size and collapses >50% with inspiration. PERICARDIAL EFFUSION There is no pleural effusion. There is no evidence of significant pericardial effusion. Critical Notification Critical Value: No <Conclusion> The left ventricular systolic function is normal. The Ejection Fraction is 65%. There is normal LV segmental wall motion. Transmitral Doppler flow pattern is Grade I-abnormal relaxation pattern. Mild mitral regurgitation. Mild tricuspid regurgitation. The pulmonary artery systolic pressure is estimated at 25 mmHg. There is no evidence of significant pericardial effusion. Signed by : Devon Barreto, Electronically Approved : 08/22/2021 17:28:00
--- NOTE | 2021-08-22 17:33 | RAD ---
MR#: [id number] Date of Study: 08/22/2021 Ordering Physician: DEN SHERMAN, Referring Physician: RUBÉN WHITFIELD Tech: DANIEL Schulz, ARRT (R) (N) APPROVED REPORT Test Type: Pharmacological Stress Nurse/Tech: Justine Avilez RN Test Indications: CAD Cardiac History: Hypertension,Pacemaker,smoker/COPD,seizure disorder, [place] 2008 Medications: See Electronic Medical Record Medical History: See Electronic Medical Record Resting ECG: SR Resting Heart Rate: 74 bpm Resting Blood Pressure: 154/64mmHg Pretest Chest Pain: No chest pain Nurse/Tech Notes S1,S2 and lungs diminished throughout. Consent: The procedure was explained to the patient in lay terms. Informed consent was witnessed. Floyd eout was entered into [employer]. History and Stress Test performed by RT Syed Domingo) (N) Pharm. Details Pharmacologic stress testing was performed using 0.4mg per 5ml of regadenoson given intravenously ove r 7-10 seconds. Stress Symptoms Dyspnea POST EXERCISE Reason for Termination: Infusion complete Target HR: No Max HR: 93 bpm 75% of Maximum Predicted HR: 124 bpm Max Blood Pressure: 161/52mmHg Blood Pressure response to exercise: Normal blood pressure response during stress. Chest Pain: No. Arrhythmia: No. ST Change: No. INTERPRETATION Stress EKG Conclusion: Baseline EKG showed sinus rhythm. No ischemic changes at peak stress. No arr hythmias. Imaging Protocol IMAGE PROTOCOL: Rest Tc-99m/stress Tc-99m 1 day Rest: Stress: Viability: Radiopharm.Tc99m VxzqptpgsFy26h Sestamibi Dose10.1mCi 33mCi Img Date 08/22/2021 08/22/2021 Inj-Img [id number]. 60min. Rest Admin Site:IV - Left AntecubitalAdministrator:DANIEL Schulz, ARRT (R)(N) Stress Admin Site: IV - Left AntecubitalAdministrator: RT Syed Domingo)(N) STRESS DATA End Diast. Vol.42.0mlAv. Heart Rate80.0bpm End Syst. Vol.6.0mlCO Index BSA0.0L/min Myocardial Mass83.0gEject. Mxfxbuji92.0% Stress Rates Pk. Fill Rate4.34EDV/secLVtime Pk. Fill 216.96msec Pk. Empty Rate5.78ESV/secLVtime Pk. Mzfwz022.26msec 1/3 Pk. Fill0.53EDV/sec Stress Scores Regional WT0.00Summed WT3.00 Regional WM0.00Summed WM2.00 Study quality was good. Left Ventricular size was Normal at Rest and Stress. Lung uptake was . Left Ventricular ejection fraction is >80%. The rest and stress images show normal perfusion, normal contraction and thickening. LV Perf. Quant 17 Seg. SSS2.00 17 Seg. SRS14.00 17 Seg. SDS0.00 Stress Defect Extent (% LAD)0.00Rest Defect Extent (% LAD)5.60Rev. Defect Extent (% LAD)0.00 Stress Defect Extent (% LCX) 25.00Rest Defect Extent (% LCX)52.50Rev. Defect Extent (% LCX)0.00 Stress Defect Extent (% RCA)0.00Rest Defect Extent (% RCA)18.90Rev. Defect Extent (% RCA)0.00 Stress Defect Extent (% SAW)4.80Rest Defect Extent (% SAW)24.10Rev. Defect Extent (% SAW)0.00 Conclusion 1. Regadenoson cardioisotope stress test did not show any evidence of ischemia or infarct. 2. Normal left ventricular systolic function with ejection fraction calculated at >80%. 3. Low risk for cardiac events. Signed by : Devon Barreto, Electronically Approved : 08/22/2021 17:32:57
== END ==
LOC: NM 09:11
PROVIDERS: ATTEND Internal Medicine Cardiovascular Disease
DX: I08.1 Rheumatic disorders of both mitral and tricuspid valves (principal); I25.10 Atherosclerotic heart disease of native coronary artery without angina pectoris
CPT/HCPCS: 78452; 93017; 93306; A9500; J2785; C8929